=== PATIENT | female | born 1995 | race Caucasian/White ===

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

== ENCOUNTER 2017-01-28 08:19 | Emergency (ER) | payer MEDICAID ==
[~2017-01-28] VITALS: Ht 160 cm; Wt 52.2 kg
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
[2017-01-28] MEDS ORDERED: ONDANSETRON 4 MG (ZOFRAN) ORAL DISSOLVE TAB PO ONE (08:45)
[2017-01-28 08:50] LABS: BILIRUBIN,URINE NEGATIVE (NEGATIVE); KETONES,URINE 4+ (NEGATIVE); LEUKOCYTE ESTERASE ,URINE 2+ (NEGATIVE); NITRITE,URINE POSITIVE (NEGATIVE); PH,URINE 6 (5-9); PROTEIN,URINE 2+ (NEGATIVE); UROBILINOGEN,URINE NORMAL (NORMAL)
[2017-01-28] MEDS ORDERED: IOHEXOL 350 MG/ML 100 ML (OMNIPAQUE 350) VIAL IV ONE (09:00)
[2017-01-28] MEDS ORDERED: NS 100 ML (IVPB) BAG IV ONE (09:00)
[2017-01-28] MEDS ORDERED: LORazepam 0.5 MG (ATIVAN) TABLET PO ONE (09:00)
[2017-01-28 09:19] LABS: BASOPHILS # (AUTO) 0.1 10^3/uL (0.0-0.1); BASOPHILS % (AUTO) 0 % (0-10); EOSINOPHILS # (AUTO) 0.1 10^3/uL (0.0-0.3); EOSINOPHILS % (AUTO) 1 % (0-10); LYMPHOCYTES # (AUTO) 5.2 X 10^3 (1.0-4.0); LYMPHOCYTES % (AUTO) 32 % (12-44); MEAN CORPUSCULAR HEMOGLOBIN 31 PG (25-34); MEAN CORPUSCULAR HGB CONC 35 G/DL (32-36); MEAN CORPUSCULAR VOLUME 88 FL (80-99); MEAN PLATELET VOLUME 10.8 FL (7.4-10.4); MONOCYTES # (AUTO) 2.1 X 10^3 (0.0-1.0); MONOCYTES % (AUTO) 13 % (0-12); NEUTROPHILS # (AUTO) 8.7 X 10^3 (1.8-7.8); NEUTROPHILS % (AUTO) 54 % (42-75); PLATELET COUNT 352 10^3/uL (130-400); RED BLOOD COUNT 4.49 10^6/uL (4.35-5.85); RED CELL DISTRIBUTION WIDTH 14.8 % (10.0-14.5); WHITE BLOOD COUNT 16.2 10^3/uL (4.3-11.0)
[2017-01-28 09:37] LABS: ALANINE AMINOTRANSFERASE 12 U/L (0-55); ANION GAP 10 MMOL/L (5-14); ASPARTATE AMINO TRANSFERASE 19 U/L (5-34); BILIRUBIN,TOTAL 0.9 MG/DL (0.1-1.0); BLOOD UREA NITROGEN 11 MG/DL (7-18); BUN/CREATININE RATIO 21; CALCIUM 9.1 MG/DL (8.5-10.1); CARBON DIOXIDE 23 MMOL/L (21-32); CHLORIDE 105 MMOL/L (98-107); CREATININE SERUM 0.53 MG/DL (0.60-1.30); GFR ESTIMATED > 60; GLUCOSE 86 MG/DL (70-105); POTASSIUM 3.2 MMOL/L (3.6-5.0); SODIUM 138 MMOL/L (135-145); TOTAL PROTEIN 7.4 GM/DL (6.4-8.2); hs C REACTIVE PROTEIN 0.15 MG/DL (0.00-0.50)
--- NOTE | 2017-01-28 09:48 | Diagnostic Imaging Report ---
PROCEDURE: CT abdomen and pelvis with contrast. TECHNIQUE: Multiple contiguous axial images were obtained through the abdomen and pelvis after administration of intravenous contrast. INDICATION: Abdominal pain with nausea for several hours. History of the bowel, spleen and bladder surgery. Patient is quadriplegic. FINDINGS: The lung bases are clear. Liver appears normal. The gallbladder and bile ducts are normal. The pancreas is normal. The spleen is absent. The adrenal glands are normal. Kidneys show symmetrical enhancement and appear normal. The aorta and abdominal vessels show normal enhancement. Small bowel is not dilated. Colon shows normal stool and gas pattern. There is no free air or free fluid. Bladder appears normal. 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 IMPRESSION: 1. No acute intra-abdominal findings are seen to suggest inflammatory bowel changes or bowel obstruction. 2. Previously reported bladder stone on 02/11/2016 is not present on today's exam. Dictated by: Dictated on workstation # [id number]
[2017-01-28 10:11] LABS: LYMPHOCYTES % (MANUAL) 36 %; NEUTROPHILS % (MANUAL) 56 %
[2017-01-28 10:15] LABS: HOWELL-JOLLY BODIES SLIGHT
[2017-01-29] MEDS ORDERED: GABA-488 PO (15:06)
== END 2017-01-28 10:37 | disposition home or self-care (01) ==
LOC: EDUNIT# 08:19 → ER 08:20
DX: R10.32 Left lower quadrant pain (principal); M25.552 Pain in left hip; J45.909 Unspecified asthma, uncomplicated; F41.9 Anxiety disorder, unspecified; E11.40 Type 2 diabetes mellitus with diabetic neuropathy, unspecified; K21.9 Gastro-esophageal reflux disease without esophagitis; F17.210 Nicotine dependence, cigarettes, uncomplicated; Z87.828 Personal history of other (healed) physical injury and trauma; Z87.820 Personal history of traumatic brain injury
CPT/HCPCS: 36415; 74177; 80053; 80306; 81000; 84703; 85007; 85027; 86141; 87088; 87186

== ENCOUNTER 2017-01-28 19:12 | Inpatient (IN) | payer MEDICAID ==
[~2017-01-28] VITALS: Ht 160 cm; Wt 49.9 kg
[2017-01-28] MEDS ORDERED: cefTRIAXone 1 GM (ROCEPHIN) VIAL IV STA (19:18)
[2017-01-28] MEDS ORDERED: NS IV 1000 ML 1,000 ML IV ONE ×2 (19:19→20:46)
[2017-01-28] MEDS ORDERED: LORazepam INJ 2 MG/ML (ATIVAN) VIAL IVP ONE (19:30)
[2017-01-28] MEDS ORDERED: PIPERACILLIN SODIUM/TAZOBACTAM 4.5 GM in NS (IVPB) 100 ML IV ONE (19:30)
[2017-01-28] MEDS ORDERED: WATER (STERILE) FOR INJECTION 20 ML ONE (19:56)
[2017-01-28] MEDS ORDERED: ZIPRASIDONE 20 MG INJ (GEODON) VIAL IM ONE ×2 (19:56→20:15)
[2017-01-28 20:05] LABS: BASOPHILS # (AUTO) 0.1 10^3/uL (0.0-0.1); BASOPHILS % (AUTO) 0 % (0-10); EOSINOPHILS # (AUTO) 0.1 10^3/uL (0.0-0.3); EOSINOPHILS % (AUTO) 0 % (0-10); LYMPHOCYTES # (AUTO) 3.8 X 10^3 (1.0-4.0); LYMPHOCYTES % (AUTO) 13 % (12-44); MEAN CORPUSCULAR HEMOGLOBIN 31 PG (25-34); MEAN CORPUSCULAR HGB CONC 35 G/DL (32-36); MEAN CORPUSCULAR VOLUME 88 FL (80-99); MEAN PLATELET VOLUME 10.9 FL (7.4-10.4); MONOCYTES % (AUTO) 10 % (0-12); NEUTROPHILS # (AUTO) 23.1 X 10^3 (1.8-7.8); NEUTROPHILS % (AUTO) 77 % (42-75); PLATELET COUNT 338 10^3/uL (130-400); RED BLOOD COUNT 4.34 10^6/uL (4.35-5.85); RED CELL DISTRIBUTION WIDTH 14.9 % (10.0-14.5)
[2017-01-28 20:10] LABS: INR 1.2 (0.8-1.4); PROTHROMBIN TIME PATIENT 14.8 SEC (12.2-14.7)
[2017-01-28 20:20] LABS: ALANINE AMINOTRANSFERASE 13 U/L (0-55); ALBUMIN 3.9 GM/DL (3.2-4.5); ANION GAP 14 MMOL/L (5-14); ASPARTATE AMINO TRANSFERASE 18 U/L (5-34); BLOOD UREA NITROGEN 10 MG/DL (7-18); BUN/CREATININE RATIO 16; CALCIUM 9.1 MG/DL (8.5-10.1); CARBON DIOXIDE 18 MMOL/L (21-32); CHLORIDE 106 MMOL/L (98-107); CREATININE SERUM 0.63 MG/DL (0.60-1.30); GFR ESTIMATED > 60; GLUCOSE 86 MG/DL (70-105); POTASSIUM 3.4 MMOL/L (3.6-5.0); SODIUM 138 MMOL/L (135-145); TOTAL PROTEIN 7.1 GM/DL (6.4-8.2)
[2017-01-28 20:26] LABS: BAND NEUTROPHILS 4 %; BASOPHILS % (MANUAL) 1 %; EOSINOPHILS % (MANUAL) 0 %; LYMPHOCYTES % (MANUAL) 22 %; NEUTROPHILS % (MANUAL) 63 %; POIKILOCYTOSIS MODERATE; REACTIVE LYMPHOCYTES 1 %; STOMATOCYTES SLIGHT; TARGET CELLS SLIGHT
[2017-01-28] MEDS ORDERED: NS W/KCL 20 MEQ/L 1,000 ML IV ONE (22:24)
[2017-01-28 22:30] VITALS: BP 85/50
[2017-01-28 22:45] VITALS: BP 85/49
[2017-01-28] MEDS ORDERED: ONDANSETRON 4 MG/2 ML (SDV) Z0FRAN IV PRN (22:45)
[2017-01-28] MEDS ORDERED: PIPERACILLIN/TAZOBACTAM 4.5 GM/NS 100 ML IV ONE ×2 (22:45)
[2017-01-28] MEDS ORDERED: ZIPRASIDONE 20 MG INJ (GEODON) VIAL IM PRN (22:45)
[2017-01-28] MEDS: NS W/KCL 20 MEQ/L 1,000 ML IV SCH (22:54)
[2017-01-28] MEDS ORDERED: CATHETER FLUSH 10 ML SYR IV PRN (23:00)
[2017-01-28 23:04] VITALS: BP 92/59
[2017-01-28] MEDS ORDERED: WATER (STERILE) FOR INJECTION 10 ML ONE (23:51)
[2017-01-29] VITALS (19 sets, daily range): BP systolic 75–104; BP diastolic 39–77
[2017-01-29] MEDS: NS W/KCL 20 MEQ/L 1,000 ML IV SCH ×2 (02:55→10:25)
[2017-01-29] MEDS ORDERED: PIPERACILLIN/TAZOBACTAM 4.5 GM/NS100 ML IVPB IV SCH ×2 (05:00)
[2017-01-29 05:11] LABS: BASOPHILS # (AUTO) 0.1 10^3/uL (0.0-0.1); BASOPHILS % (AUTO) 0 % (0-10); EOSINOPHILS # (AUTO) 0.1 10^3/uL (0.0-0.3); EOSINOPHILS % (AUTO) 0 % (0-10); LYMPHOCYTES # (AUTO) 5.2 X 10^3 (1.0-4.0); LYMPHOCYTES % (AUTO) 22 % (12-44); MEAN CORPUSCULAR HEMOGLOBIN 31 PG (25-34); MEAN CORPUSCULAR HGB CONC 34 G/DL (32-36); MEAN CORPUSCULAR VOLUME 91 FL (80-99); MEAN PLATELET VOLUME 10.9 FL (7.4-10.4); MONOCYTES # (AUTO) 2.1 X 10^3 (0.0-1.0); MONOCYTES % (AUTO) 9 % (0-12); NEUTROPHILS # (AUTO) 16.1 X 10^3 (1.8-7.8); NEUTROPHILS % (AUTO) 68 % (42-75); PLATELET COUNT 307 10^3/uL (130-400); RED BLOOD COUNT 3.88 10^6/uL (4.35-5.85); RED CELL DISTRIBUTION WIDTH 15.6 % (10.0-14.5); WHITE BLOOD COUNT 23.5 10^3/uL (4.3-11.0)
[2017-01-29 05:27] LABS: ALANINE AMINOTRANSFERASE 12 U/L (0-55); ANION GAP 10 MMOL/L (5-14); ASPARTATE AMINO TRANSFERASE 18 U/L (5-34); BILIRUBIN,TOTAL 0.5 MG/DL (0.1-1.0); BLOOD UREA NITROGEN 7 MG/DL (7-18); BUN/CREATININE RATIO 15; CALCIUM 7.8 MG/DL (8.5-10.1); CARBON DIOXIDE 18 MMOL/L (21-32); CHLORIDE 115 MMOL/L (98-107); CREATININE SERUM 0.48 MG/DL (0.60-1.30); GFR ESTIMATED > 60; GLUCOSE 73 MG/DL (70-105); MAGNESIUM 2.1 MG/DL (1.8-2.4); PHOSPHORUS 4.3 MG/DL (2.3-4.7); POTASSIUM 4.4 MMOL/L (3.6-5.0); SODIUM 143 MMOL/L (135-145); TOTAL PROTEIN 5.6 GM/DL (6.4-8.2)
[2017-01-29] MEDS ORDERED: CATHETER FLUSH 10 ML SYR IV SCH (06:00)
[2017-01-29] MEDS ORDERED: KCL 20 MEQ TAB (K-DUR) PO SCH (06:00)
[2017-01-29] MEDS ORDERED: POTASSIUM CL 10MEQ/50ML IVPB 50 ML IV SCH (06:00)
[2017-01-29] MEDS ORDERED: MAGNESIUM 1 GM/100 ML IVPB 100 ML IV SCH (06:00)
[2017-01-29] MEDS ORDERED: INFLUENZA TRIvalent 2017-2018 0.5 ML/45 MCG SYR IM ONE (07:30)
[2017-01-29] MEDS ORDERED: NICOTINE 21 MG (NICODERM) PATCH TD NR (13:00)
[2017-01-29] MEDS ORDERED: GABA-488 PO (15:06)
[2017-01-29] MEDS ORDERED: NON-FORMULARY MEDICATION 1 EA EA (Baclofen 20 MG) PO SCH (17:30)
[2017-01-29] MEDS: GABAPENTIN 600 MG (NEURONTIN) TAB PO SCH ×2 (18:10→23:30)
[2017-01-29] MEDS: GABAPENTIN 300 MG (NEURONTIN) CAP PO SCH ×2 (18:10→23:30)
[2017-01-29] MEDS: BACLOFEN 10 MG (LIORESAL) TAB PO SCH (18:11)
[2017-01-29] MEDS: OXYBUTYNIN (DITROPAN) 5 MG TAB PO SCH ×2 (18:11→23:30)
[2017-01-29] MEDS ORDERED: GABAPENTIN 600 MG (NEURONTIN) TAB PO SCH (21:00)
[2017-01-29] MEDS ORDERED: OXYBUTYNIN (DITROPAN) 5 MG TAB PO SCH (21:00)
[2017-01-29] MEDS ORDERED: GABAPENTIN 300 MG (NEURONTIN) CAP PO SCH (21:00)
[2017-01-30 00:22] VITALS: BP 90/50
[2017-01-30 04:00] VITALS: BP 90/54
[2017-01-30 04:05] VITALS: BP 152/89
[2017-01-30] MEDS: BACLOFEN 10 MG (LIORESAL) TAB PO SCH (05:18)
[2017-01-30 08:00] VITALS: BP 104/61
[2017-01-30] MEDS ORDERED: NICOTINE PATCH REMOVAL TP NR (08:59)
[2017-01-30] MEDS: GABAPENTIN 600 MG (NEURONTIN) TAB PO SCH (09:02)
[2017-01-30] MEDS: OXYBUTYNIN (DITROPAN) 5 MG TAB PO SCH (09:02)
[2017-01-30] MEDS: GABAPENTIN 300 MG (NEURONTIN) CAP PO SCH (09:02)
[2017-01-30 11:30] VITALS: BP 104/61
== END 2017-01-30 11:30 | disposition home or self-care (01) | DRG 897 ==
LOC: EDUNIT# 19:12 → ER 19:13 → ICU 20:49 → 4TH 01-29 15:50
PROVIDERS: ADMIT Internal Medicine; ATTEND Internal Medicine
DX: F15.151 Other stimulant abuse with stimulant-induced psychotic disorder with hallucinations (principal); F11.10 Opioid abuse, uncomplicated; F13.10 Sedative, hypnotic or anxiolytic abuse, uncomplicated; F12.10 Cannabis abuse, uncomplicated; F17.210 Nicotine dependence, cigarettes, uncomplicated; N39.0 Urinary tract infection, site not specified; G82.20 Paraplegia, unspecified; T14.90XS Injury, unspecified, sequela
CPT/HCPCS: 36415; 51702; 71010; 80053; 83605; 83735; 84100; 84703; 85007; 85025; 85027; 85610; 85730; 87040; 96361; 96365; 96372; 96375

== ENCOUNTER 2018-01-08 14:08 | Emergency (ER) | payer MEDICARE, MEDICAID ==
[~2018-01-08] VITALS: Ht 152.4 cm; Wt 42.6 kg
[~2018-01-08 14:08] MED LIST changes: +ACHD5005 PO; +GABA-488 PO; -HYDR-3812 PO
[2018-01-08] MEDS ORDERED: ORPHENADRINE 60 MG/2 ML (NORFLEX) AMP IM ONE (15:00)
[2018-01-08] MEDS ORDERED: KETOROLAC 60 MG/2 ML VIAL IM ONE (15:00)
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
[2018-01-08 15:47] VITALS: BP 92/52
== END 2018-01-08 15:47 | disposition home or self-care (01) ==
LOC: EDUNIT# 14:08 → ER 14:09
DX: M54.5 Low back pain (principal); J44.9 Chronic obstructive pulmonary disease, unspecified; F12.10 Cannabis abuse, uncomplicated; F15.10 Other stimulant abuse, uncomplicated; F41.9 Anxiety disorder, unspecified; K21.9 Gastro-esophageal reflux disease without esophagitis; F17.210 Nicotine dependence, cigarettes, uncomplicated; Z93.0 Tracheostomy status; Z90.81 Acquired absence of spleen; Z87.820 Personal history of traumatic brain injury; Z87.440 Personal history of urinary (tract) infections; Z87.19 Personal history of other diseases of the digestive system
CPT/HCPCS: 96372; 99284

== ENCOUNTER 2018-08-05 14:52 | Emergency (ER) | payer MEDICARE, MEDICAID ==
[~2018-08-05] VITALS: Ht 152.4 cm; Wt 45.4 kg
[~2018-08-05 14:52] MED LIST changes: -GABA600T2 PO; +GBPN600T PO
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
[2018-08-05] MEDS ORDERED: AZIT250T PO (15:33)
[2018-08-05] MEDS ORDERED: IPRA3AMP31 IH (15:33)
[2018-08-05] MEDS ORDERED: PRED10TA22 PO (15:33)
--- NOTE | 2018-08-05 15:39 | Diagnostic Imaging Report ---
INDICATION: Cough, congestion, flu-like symptoms. FINDINGS: The lungs are clear. The heart and vessels are normal. There is no effusion or pneumothorax. IMPRESSION: No acute appearing abnormality. Dictated by: Dictated on workstation # [id number]
[2018-08-05 16:27] VITALS: BP 97/52
== END 2018-08-05 16:27 | disposition home or self-care (01) ==
LOC: EDUNIT# 14:52 → ER 14:53
DX: J44.9 Chronic obstructive pulmonary disease, unspecified (principal); F41.9 Anxiety disorder, unspecified; K21.9 Gastro-esophageal reflux disease without esophagitis; F12.10 Cannabis abuse, uncomplicated; F15.10 Other stimulant abuse, uncomplicated; Z79.52 Long term (current) use of systemic steroids; Z87.820 Personal history of traumatic brain injury; Z87.440 Personal history of urinary (tract) infections; Z77.22 Contact with and (suspected) exposure to environmental tobacco smoke (acute) (chronic); Z93.0 Tracheostomy status; Z90.81 Acquired absence of spleen; Z98.890 Other specified postprocedural states
CPT/HCPCS: 71045; 87804

== ENCOUNTER 2019-07-03 13:51 | Emergency (ER) | payer MEDICARE, MEDICAID ==
[~2019-07-03] VITALS: Ht 152 cm; Wt 45.0 kg
[~2019-07-03 13:51] MED LIST changes: +AZIT250T PO; +IPRA3AMP31 IH; +OXYB5TAB13 PO; -OXYB5TAB9 PO; +PRED10TA22 PO
[2019-07-03 14:01] VITALS: BP 122/98
[2019-07-03] MEDS ORDERED: NS IV 1000 ML 1,000 ML IV SCH (14:13)
--- NOTE | 2019-07-03 14:25 | NUR ---
PATIENT CRYING DOSEN'T WANT TO HAVE IV DR NOTIFIED.
[2019-07-03] MEDS ORDERED: MIRA25TA (14:34)
[2019-07-03] MEDS ORDERED: TRAM50TA3 (14:34)
--- NOTE | 2019-07-03 14:40 | NUR ---
AFTER DR MORALES TALKING WITH PATIENT CON'T TO DECLINE TO HAVE IV WANTS TO SIGN AMA
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
== END 2019-07-03 14:39 | disposition left against medical advice (07) ==
LOC: EDUNIT# 13:51 → ER 13:53
DX: S70.02XA Contusion of left hip, initial encounter (principal); S30.1XXA Contusion of abdominal wall, initial encounter; S20.212A Contusion of left front wall of thorax, initial encounter; F41.9 Anxiety disorder, unspecified; J44.9 Chronic obstructive pulmonary disease, unspecified; R40.2142 Coma scale, eyes open, spontaneous, at arrival to emergency department; R40.2252 Coma scale, best verbal response, oriented, at arrival to emergency department; R40.2362 Coma scale, best motor response, obeys commands, at arrival to emergency department; G62.9 Polyneuropathy, unspecified; F17.210 Nicotine dependence, cigarettes, uncomplicated; Z86.73 Personal history of transient ischemic attack (TIA), and cerebral infarction without residual deficits; Z79.52 Long term (current) use of systemic steroids; W06.XXXA Fall from bed, initial encounter
CPT/HCPCS: 99282

== ENCOUNTER 2019-09-20 20:20 | Inpatient (IN) | payer MEDICARE, MEDICAID ==
[~2019-09-20] VITALS: Ht 152 cm; Wt 50.0 kg
[~2019-09-20 20:20] MED LIST changes: +MIRA25TA; +TRAM50TA3
[2019-09-20] MEDS ORDERED: LACTATED RINGERS 1,000 ML IV ONE ×2 (20:34→21:18)
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
[2019-09-20] MEDS ORDERED: LIDOCAINE 1% INJ 20 ML 20 ML VIAL INJ ONE (20:45)
[2019-09-20] MEDS ORDERED: VANCOMYCIN INJECTION 1,000 MG in NS (IVPB) 250 ML IV ONE (20:45)
[2019-09-20] MEDS ORDERED: HYDROcodone/APAP 5 MG/325 MG (LORTAB) TAB PO ONE (20:45)
[2019-09-20] MEDS ORDERED: PIPERACILLIN SODIUM/TAZOBACTAM 4.5 GM in NS (IVPB) 100 ML IV ONE (20:45)
[2019-09-20 20:49] LABS: BASOPHILS % (AUTO) 0 % (0-10); EOSINOPHILS # (AUTO) 0.3 10^3/uL (0.0-0.3); EOSINOPHILS % (AUTO) 2 % (0-10); HEMATOCRIT 32 % (35-52); HEMOGLOBIN 10.9 G/DL (11.5-16.0); LYMPHOCYTES # (AUTO) 2.8 X 10^3 (1.0-4.0); LYMPHOCYTES % (AUTO) 15 % (12-44); MEAN CORPUSCULAR HEMOGLOBIN 29 PG (25-34); MEAN CORPUSCULAR HGB CONC 34 G/DL (32-36); MEAN CORPUSCULAR VOLUME 86 FL (80-99); MEAN PLATELET VOLUME 10.1 FL (7.4-10.4); MONOCYTES # (AUTO) 2.5 X 10^3 (0.0-1.0); MONOCYTES % (AUTO) 13 % (0-12); NEUTROPHILS # (AUTO) 13.5 X 10^3 (1.8-7.8); NEUTROPHILS % (AUTO) 71 % (42-75); PLATELET COUNT 516 10^3/uL (130-400); RED CELL DISTRIBUTION WIDTH 16.1 % (10.0-14.5); WHITE BLOOD COUNT 19.1 10^3/uL (4.3-11.0)
--- NOTE | 2019-09-20 21:03 | Diagnostic Imaging Report ---
INDICATION: Fever, joint infection. EXAMINATION: Single view of the chest was obtained. FINDINGS: The lungs are clear although hyperexpanded. The heart size and pulmonary vascularity are within normal limits. No effusion or pneumothorax. IMPRESSION: Clear hyperexpanded lungs, otherwise negative. Dictated by: Dictated on workstation # [id number]
--- NOTE | 2019-09-20 21:05 | Diagnostic Imaging Report ---
INDICATION: Fever and infection. EXAMINATION: Three views of the left elbow were obtained. FINDINGS: There is extensive swelling posterior to the intact olecranon. No bony erosion. No pathologically displaced fat pad to suggest a joint effusion. Olecranon bursal collection is likely present. No gas or opaque foreign body. IMPRESSION: Extensive swelling posterior to the olecranon with likely underlying olecranon bursal fluid and cellulitis with skin thickening. Dictated by: Dictated on workstation # [id number]
--- NOTE | 2019-09-20 21:10 | NUR ---
LEFT LEBOW DRAINED, CULTURE SENT BY DR SALGADO.
[2019-09-20 21:13] LABS: ALBUMIN 3.5 GM/DL (3.2-4.5); CHLORIDE 100 MMOL/L (98-107); NEUTROPHILS % (MANUAL) 76 %; SODIUM 134 MMOL/L (135-145)
[2019-09-20 21:14] LABS: CALCIUM 8.5 MG/DL (8.5-10.1); EOSINOPHILS % (MANUAL) 2 %; HYPOCHROMASIA SLIGHT; INR 1.1 (0.8-1.4); LYMPHOCYTES % (MANUAL) 12 %; MONOCYTES % (MANUAL) 10 %; PROTHROMBIN TIME PATIENT 14.5 SEC (12.2-14.7); STOMATOCYTES SLIGHT; TARGET CELLS SLIGHT
--- NOTE | 2019-09-20 21:14 | NUR ---
Donnie guerrero in [facility] - 09/20/19 at 2118 by NERY REPORT GIVEN TO DIDIER ELIZABETH
[2019-09-20 21:15] LABS: GLUCOSE 82 MG/DL (70-105); TOTAL PROTEIN 6.6 GM/DL (6.4-8.2)
[2019-09-20 21:16] LABS: CARBON DIOXIDE 24 MMOL/L (21-32)
[2019-09-20 21:17] LABS: BILIRUBIN,TOTAL 0.4 MG/DL (0.1-1.0)
[2019-09-20 21:19] LABS: ALKALINE PHOSPHATASE 78 U/L (40-136); CREATININE SERUM 0.49 MG/DL (0.60-1.30); GFR ESTIMATED > 60
[2019-09-20 21:20] LABS: BUN/CREATININE RATIO 16
[2019-09-20 21:22] LABS: ALANINE AMINOTRANSFERASE 17 U/L (0-55)
[2019-09-20 22:26] VITALS: BP 70/42
--- NOTE | 2019-09-20 22:30 | NUR ---
2235: PT ADMITTED AT THIS TIME TO ICU-9. PT IMMEDIATELY REPORTING THAT HER NECK ITCHES AND PT IS VIGOROUSLY SCRATCHING HER NECK. PT REPORTS THAT SHE WAS GIVEN HYDROCODONE IN ER AND "THAT SOME PAIN MEDICATIONS MAKE HER ITCH." PT CONNECTED TO MONITOR, URINE INCONTINENCE CLEANED UP, AND 16 F AGEE CATHETER INSERTED. UA SENT DOWN TO LAB. PT REPORTS HIVES TO LEFT SHOULDER. PT'S FACE NOW SWELLING WITH HIVES NOTED TO NECK, SHOULDERS AND FACE. E-ICU AND PLATFORM CONSULTANT NOTIFIED IMMEDIATELY. THIS RN ASKED PT IF SHE HAD ANY ALLERGIES AND SHE FIRST REPORTED THAT SHE HAD NONE, THEN A FEW MINUTES LATER REPORTED THAT SHE HAD A "PENICILLIN ALLERGY A CHILD." THIS RN REPORTED THIS INFORMATION TO E-ICU AND REPORTED ALL MEDS GIVEN IN ER. NEW ORDER RECEIVED FOR 25 MG IV BENADRYL ONCE NOW AND DOCTOR TO SWITCH ANTIBIOTICS FROM ZOSYN TO CLINDAMYCIN. PT REPORTS NO DIFFICULTY SWALLOWING OR SHORTNESS OF AIR. 2320: FACIAL SWELLING IS NOW IMPROVED AND PT REPORTS NOT FEELING ITCHY. SEE INTERVENTIONS FOR ASSESSMENTS AND VITAL SIGNS. PENICILLIN AND ZOSYN ADDED TO PT'S ALLERGY LIST. WILL CONTINUE TO MONITOR.
[2019-09-20] MEDS ORDERED: diphenhydrAMINE 50 MG/ML INJ (BENADRYL) ONE (22:38)
[2019-09-20 22:45] VITALS: BP 76/32
[2019-09-20] MEDS ORDERED: ACETAMINOPHEN 325 MG TABLET PO PRN (22:45)
[2019-09-20] MEDS ORDERED: diphenhydrAMINE 50 MG/ML INJ (BENADRYL) IVP ONE (22:45)
[2019-09-20] MEDS ORDERED: ONDANSETRON 4 MG/2 ML (SDV) Z0FRAN IV PRN (22:45)
[2019-09-20 22:47] LABS: BILIRUBIN,URINE NEGATIVE (NEGATIVE); CLARITY,URINE CLEAR; COLOR,URINE YELLOW; GLUCOSE, URINE (UA) NEGATIVE (NEGATIVE); KETONES,URINE NEGATIVE (NEGATIVE); LEUKOCYTE ESTERASE ,URINE TRACE (NEGATIVE); NITRITE,URINE NEGATIVE (NEGATIVE); PH,URINE 7.5 (5-9); PROTEIN,URINE NEGATIVE (NEGATIVE)
[2019-09-20] MEDS: LACTATED RINGERS 1,000 ML IV SCH (22:52)
[2019-09-20 23:00] VITALS: BP 85/43
[2019-09-20 23:03] LABS: RBC,URINE RARE /HPF; WBC,URINE 0-2 /HPF
[2019-09-20 23:04] LABS: BACTERIA,URINE TRACE /HPF; URIC ACID CRYSTALS,URINE RARE /LPF; YEAST,URINE FEW /HPF
[2019-09-20 23:06] LABS: AMPHETAMINE SCREEN, URINE NEGATIVE (NEGATIVE); BARBITURATE SCREEN URINE NEGATIVE (NEGATIVE); BENZODIAZEPINES SCREEN URINE NEGATIVE (NEGATIVE); CANNABINOID SCREEN, URINE POSITIVE (NEGATIVE); COCAINE SCREEN URINE NEGATIVE (NEGATIVE); METHADONE STAT NEGATIVE (NEGATIVE); METHAMPHETAMINE SCREEN URINE S NEGATIVE (NEGATIVE); OPIATE SCREEN URINE POSITIVE (NEGATIVE); OXYCODONE STAT NEGATIVE (NEGATIVE); PROPOXYPHENE STAT NEGATIVE (NEGATIVE); TRICYCLIC ANTIDEPRESSANTS SCRE NEGATIVE (NEGATIVE)
[2019-09-20 23:30] VITALS: BP 68/40
--- NOTE | 2019-09-20 23:45 | NUR ---
PT'S SBP IN THE 70'S. E-ICU NOTIFIED OF BLOOD PRESSURE. PT REPORTS THAT HER "BLOOD PRESSURE USUALLY RUNS IN THE 80'S." NO NEW ORDERS RECEIVED.
[2019-09-21] VITALS (26 sets, daily range): BP systolic 66–112; BP diastolic 34–72
[2019-09-21] MEDS ORDERED: GABAPENTIN 300 MG (NEURONTIN) CAP ONE (00:32)
[2019-09-21] MEDS ORDERED: BACLOFEN 10 MG (LIORESAL) TAB ONE (00:32)
[2019-09-21] MEDS: BACLOFEN 10 MG (LIORESAL) TAB PO SCH ×4 (00:41→20:17)
[2019-09-21] MEDS: GABAPENTIN 300 MG (NEURONTIN) CAP PO SCH ×4 (00:41→20:16)
[2019-09-21] MEDS ORDERED: PIPERACILLIN/TAZO 4.5 GM/NS 100 ML IV SCH ×2 (02:00)
[2019-09-21 03:40] LABS: BASOPHILS % (AUTO) 0 % (0-10); EOSINOPHILS # (AUTO) 0.2 10^3/uL (0.0-0.3); EOSINOPHILS % (AUTO) 2 % (0-10); HEMATOCRIT 31 % (35-52); HEMOGLOBIN 10.3 G/DL (11.5-16.0); LYMPHOCYTES # (AUTO) 3.2 X 10^3 (1.0-4.0); LYMPHOCYTES % (AUTO) 23 % (12-44); MEAN CORPUSCULAR HEMOGLOBIN 29 PG (25-34); MEAN CORPUSCULAR HGB CONC 33 G/DL (32-36); MEAN CORPUSCULAR VOLUME 88 FL (80-99); MEAN PLATELET VOLUME 11.5 FL (7.4-10.4); MONOCYTES # (AUTO) 1.6 X 10^3 (0.0-1.0); MONOCYTES % (AUTO) 11 % (0-12); NEUTROPHILS % (AUTO) 64 % (42-75); PLATELET COUNT 465 10^3/uL (130-400)
[2019-09-21 03:56] LABS: CHLORIDE 106 MMOL/L (98-107); POTASSIUM 3.9 MMOL/L (3.6-5.0); SODIUM 139 MMOL/L (135-145)
[2019-09-21 03:57] LABS: CALCIUM 8.3 MG/DL (8.5-10.1)
[2019-09-21 03:58] LABS: GLUCOSE 93 MG/DL (70-105)
[2019-09-21 03:59] LABS: CARBON DIOXIDE 25 MMOL/L (21-32)
[2019-09-21 04:01] LABS: PHOSPHORUS 3.8 MG/DL (2.3-4.7)
[2019-09-21 04:02] LABS: CREATININE SERUM 0.52 MG/DL (0.60-1.30); GFR ESTIMATED > 60
[2019-09-21 04:03] LABS: BUN/CREATININE RATIO 13
[2019-09-21 04:04] LABS: MAGNESIUM 1.9 MG/DL (1.6-2.4)
[2019-09-21] MEDS: HYDROcodone/APAP 5 MG/325 MG (LORTAB) TAB PO PRN ×3 (04:10→20:16)
[2019-09-21] MEDS: LACTATED RINGERS 1,000 ML IV SCH ×3 (05:43→19:37)
[2019-09-21] MEDS: CLINDAMYCIN 600 MG/50 ML IVPB 50 ML IV SCH ×3 (07:22→23:10)
[2019-09-21] MEDS ORDERED: NS IV 1000 ML 1,000 ML IV SCH (08:15)
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
[2019-09-21] MEDS: IBUPROFEN TABLET 200 MG TAB PO PRN (17:25)
[2019-09-22] VITALS (9 sets, daily range): BP systolic 81–117; BP diastolic 52–84
[2019-09-22] MEDS: LACTATED RINGERS 1,000 ML IV SCH (02:32)
[2019-09-22] MEDS: HYDROcodone/APAP 5 MG/325 MG (LORTAB) TAB PO PRN (02:33)
[2019-09-22 03:45] LABS: BASOPHILS # (AUTO) 0.1 10^3/uL (0.0-0.1); BASOPHILS % (AUTO) 0 % (0-10); EOSINOPHILS # (AUTO) 0.4 10^3/uL (0.0-0.3); EOSINOPHILS % (AUTO) 3 % (0-10); HEMATOCRIT 29 % (35-52); HEMOGLOBIN 9.6 G/DL (11.5-16.0); LYMPHOCYTES # (AUTO) 7.1 X 10^3 (1.0-4.0); LYMPHOCYTES % (AUTO) 47 % (12-44); MEAN CORPUSCULAR HEMOGLOBIN 29 PG (25-34); MEAN CORPUSCULAR HGB CONC 34 G/DL (32-36); MEAN CORPUSCULAR VOLUME 85 FL (80-99); MEAN PLATELET VOLUME 11.3 FL (7.4-10.4); MONOCYTES # (AUTO) 2.4 X 10^3 (0.0-1.0); MONOCYTES % (AUTO) 16 % (0-12); NEUTROPHILS # (AUTO) 5.1 X 10^3 (1.8-7.8); NEUTROPHILS % (AUTO) 34 % (42-75); PLATELET COUNT 437 10^3/uL (130-400); RED CELL DISTRIBUTION WIDTH 16.2 % (10.0-14.5)
[2019-09-22 04:13] LABS: CHLORIDE 107 MMOL/L (98-107); POTASSIUM 3.9 MMOL/L (3.6-5.0); SODIUM 141 MMOL/L (135-145)
[2019-09-22 04:14] LABS: CALCIUM 8.3 MG/DL (8.5-10.1)
[2019-09-22 04:15] LABS: GLUCOSE 80 MG/DL (70-105)
[2019-09-22 04:16] LABS: CARBON DIOXIDE 24 MMOL/L (21-32)
[2019-09-22 04:18] LABS: CREATININE SERUM 0.46 MG/DL (0.60-1.30); GFR ESTIMATED > 60; PHOSPHORUS 3.4 MG/DL (2.3-4.7)
[2019-09-22 04:19] LABS: BUN/CREATININE RATIO 9
[2019-09-22 04:21] LABS: MAGNESIUM 1.7 MG/DL (1.6-2.4)
[2019-09-22] MEDS: MAGNESIUM 1 GM/100 ML IVPB 100 ML IV SCH ×2 (05:59→06:56)
[2019-09-22] MEDS: IBUPROFEN TABLET 200 MG TAB PO PRN (06:11)
[2019-09-22] MEDS: CLINDAMYCIN 600 MG/50 ML IVPB 50 ML IV SCH (06:13)
--- NOTE | 2019-09-22 09:00 | NUR ---
Upon entering patient room, there was an immediate request to leave AMA. This RN educated patient on need to stay in hospital for continued treatment and possible worsening of condition if she leaves. Patient also informed that by leaving AMA she would not be given scripts for continued antibiotics. After conversation patients still would like to leave. Dr Euceda notified. Paperwork signed. IV and ornelas catheter removed. Patient wheeled out to boyfriend's car by this RN.
--- NOTE | 2019-09-22 16:06 | Discharge Summary ---
Discharge Summary Hospital Course Hospital Course Date of Admission: September 20, 2019 at 20:45 Admission Diagnosis : Family Physician/Provider: [facility] Date of Discharge: 09/22/19 Discharge Diagnosis: Left against medical advice Sepsis secondary to cellulitis Hospital Course: Pt admitted with sepsis secondary to cellulitis of elbow, left AMA before I saw her on 09/21. Labs and Pending Lab Test: Laboratory Tests 09/22/19 03:03: White Blood Count 15.0H, Red Blood Count 3.34L, Hemoglobin 9.6L, Hematocrit 29L, Mean Corpuscular Volume 85, Mean Corpuscular Hemoglobin 29, Mean Corpuscular Hemoglobin Concent 34, Red Cell Distribution Width 16.2H, Platelet Count 437H, Mean Platelet Volume 11.3H, Neutrophils (%) (Auto) 34L, Lymphocytes (%) (Auto) 47H, Monocytes (%) (Auto) 16H, Eosinophils (%) (Auto) 3, Basophils (%) (Auto) 0, Neutrophils # (Auto) 5.1, Lymphocytes # (Auto) 7.1H, Monocytes # (Auto) 2.4H, Eosinophils # (Auto) 0.4H, Basophils # (Auto) 0.1, Sodium Level 141, Potassium Level 3.9, Chloride Level 107, Carbon Dioxide Level 24, Anion Gap 10, Blood Urea Nitrogen 4L, Creatinine 0.46L, Estimat Glomerular Filtration Rate > 60, BUN/Creatinine Ratio 9, Glucose Level 80, Calcium Level 8.3L, Phosphorus Level 3.4, Magnesium Level 1.7 Microbiology 09/20/19 Urine Culture - Final, Complete Escherichia coli Group B Streptococci 09/20/19 Gram Stain - Final, Resulted 09/20/19 Wound Culture - Preliminary, Resulted Gram Pos Mixed Bacterial Oriana Strep agalactiae Group B 09/20/19 Blood Culture - Preliminary, Resulted No growth Home Meds Active Iprat-Albut 0.5-3(2.5) mg/3 ml (Ipratropium/Albuterol Sulfate) 3 Ml Ampul.neb 3 Ml IH Q4H PRN Zithromax (Azithromycin) 250 Mg Tablet 250 Mg PO UD TAKE 2 TABLETS TODAY, THEN TAKE 1 TABLET DAILY FOR 4 MORE DAYS Prednisone 10 Mg Tab.ds.pk 10 Mg PO UD Reported Tramadol HCl 50 Mg Tablet Myrbetriq (Mirabegron) 25 Mg Tab.er.24h Gabapentin 300 Mg Capsule 300 Mg PO TID TAKES IN CONJUNCTION WITH GABAPENTIN 600MG Oxybutynin Chloride 5 Mg Tablet 10 Mg PO TID TAKES 2 (5MG) TABLETS Baclofen 20 Mg Tablet 20 Mg PO Q8H Gabapentin 600 Mg Tablet 600 Mg PO TID TAKES IN CONJUNCTION WITH GABAPENTIN 300MG Assessment/Pt DC Instructions Pt left AMA Discharge Physical Examination Allergies: Coded Allergies: piperacillin (Verified Allergy, Severe, Hives, 09/20/19) ITCHING, FACIAL SWELLING AND HIVES tazobactam (Verified Allergy, Severe, Hives, 09/20/19) ITCHING, FACIAL SWELLING AND HIVES Penicillins (Verified Allergy, Unknown, 09/20/19) Skin: Tattoos/Piercings Copy Copies To 1: MELI WALLACE MD Clinical Quality Measures DVT/VTE Risk/Contraindication: Risk Factor Score Per Nursin RFS Level Per Nursing on Admit: 4+=Very High REKHA BLANTON MD September 22, 2019 16:06
[2019-09-23] MEDS ORDERED: MAGNESIUM 1 GM/100 ML IVPB 100 ML IV SCH (06:00)
[2019-09-23] MEDS ORDERED: KCL 20 MEQ TAB (K-DUR) PO SCH (06:00)
[2019-09-23] MEDS ORDERED: POTASSIUM CL 10MEQ/50ML IVPB 50 ML IV SCH (06:00)
== END 2019-09-22 09:00 | disposition left against medical advice (07) | DRG 872 ==
LOC: EDUNIT# 20:20 → ER 20:22 → ICU 20:45
PROVIDERS: ADMIT Internal Medicine; ATTEND Family Medicine
PROC: 0J9F0ZX Drainage of Left Upper Arm Subcutaneous Tissue and Fascia, Open Approach, Diagnostic (ICD-10-PCS; principal; 2019-09-20)
DX: A41.9 Sepsis, unspecified organism (principal); L03.114 Cellulitis of left upper limb; L89.020 Pressure ulcer of left elbow, unstageable; L50.0 Allergic urticaria; T36.0X5A Adverse effect of penicillins, initial encounter; S14.106S Unspecified injury at C6 level of cervical spinal cord, sequela; G81.90 Hemiplegia, unspecified affecting unspecified side; Z90.81 Acquired absence of spleen; J44.9 Chronic obstructive pulmonary disease, unspecified; G62.9 Polyneuropathy, unspecified; Z87.820 Personal history of traumatic brain injury; K21.9 Gastro-esophageal reflux disease without esophagitis; M21.379 Foot drop, unspecified foot; F41.9 Anxiety disorder, unspecified
CPT/HCPCS: 36415; 71045; 73080; 80048; 80053; 80306; 81000; 83605; 83735; 84100; 85007; 85025; 85027; 85610; 85730; 87040; 87070; 87077; 87088; 87186; 87205; 96361; 96365; 96367

== ENCOUNTER → 2019-09-30 | Outpatient (CLI) | payer MEDICARE, MEDICAID | LOC: WOUNDCARE 13:06 | PROVIDERS: ATTEND Surgery | DX: I96 Gangrene, not elsewhere classified (principal); L89.023 Pressure ulcer of left elbow, stage 3; G82.54 Quadriplegia, C5-C7 incomplete; E44.1 Mild protein-calorie malnutrition | CPT/HCPCS: 11042 ==

== ENCOUNTER → 2019-10-13 | Outpatient (CLI) | payer MEDICARE, MEDICAID | LOC: WOUNDCARE 14:30 | PROVIDERS: ATTEND Surgery | DX: L89.023 Pressure ulcer of left elbow, stage 3 (principal); G82.50 Quadriplegia, unspecified; E44.1 Mild protein-calorie malnutrition; I96 Gangrene, not elsewhere classified | CPT/HCPCS: 11042 ==

== ENCOUNTER 2019-10-26 06:47 | Emergency (ER) | payer MEDICARE, MEDICAID ==
[~2019-10-26] VITALS: Ht 152 cm; Wt 45.5 kg
[2019-10-26 07:04] LABS: BASOPHILS # (AUTO) 0.1 10^3/uL (0.0-0.1); BASOPHILS % (AUTO) 0 % (0-10); EOSINOPHILS # (AUTO) 0.3 10^3/uL (0.0-0.3); EOSINOPHILS % (AUTO) 1 % (0-10); HEMATOCRIT 31 % (35-52); HEMOGLOBIN 10.7 G/DL (11.5-16.0); LYMPHOCYTES # (AUTO) 5.5 X 10^3 (1.0-4.0); LYMPHOCYTES % (AUTO) 29 % (12-44); MEAN CORPUSCULAR HEMOGLOBIN 30 PG (25-34); MEAN CORPUSCULAR HGB CONC 35 G/DL (32-36); MEAN CORPUSCULAR VOLUME 85 FL (80-99); MEAN PLATELET VOLUME 10.6 FL (7.4-10.4); MONOCYTES # (AUTO) 2.5 X 10^3 (0.0-1.0); MONOCYTES % (AUTO) 13 % (0-12); NEUTROPHILS # (AUTO) 10.8 X 10^3 (1.8-7.8); NEUTROPHILS % (AUTO) 56 % (42-75); PLATELET COUNT 413 10^3/uL (130-400); RED CELL DISTRIBUTION WIDTH 18.6 % (10.0-14.5); WHITE BLOOD COUNT 19.1 10^3/uL (4.3-11.0)
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
--- NOTE | 2019-10-26 07:48 | NUR ---
Pt's L elbow wound irrigated at this time.
[2019-10-26] MEDS ORDERED: NS IV 1000 ML 1,000 ML IV SCH (08:00)
[2019-10-26 08:11] LABS: EOSINOPHILS % (MANUAL) 1 %; HYPOCHROMASIA MODERATE; LYMPHOCYTES % (MANUAL) 29 %; MONOCYTES % (MANUAL) 6 %; NEUTROPHILS % (MANUAL) 64 %; TARGET CELLS MARKED
[2019-10-26 08:12] LABS: ELLIPT/OVALOCYTES SLIGHT; HOWELL-JOLLY BODIES SLIGHT; STOMATOCYTES MODERATE
[2019-10-26] MEDS ORDERED: CEFEPIME INJECTION 2,000 MG in WATER (STERILE) FOR INJECTION 20 ML IV ONE (08:15)
--- NOTE | 2019-10-26 08:25 | Diagnostic Imaging Report ---
INDICATION: Left elbow pain. COMPARISON: None available. TECHNIQUE: 2 views of the left elbow were obtained. FINDINGS: There is focal bulbous soft tissue swelling along the olecranon region of the elbow which may represent olecranon bursitis. No associated soft tissue mineralizations or gas. No fracture or osseous erosions. Joint spaces are well-preserved. No features of elbow joint effusion. IMPRESSION: 1. Soft tissue swelling in the posterior aspect that probably represents olecranon bursitis. No soft tissue gas. 2. No radiographic features of osteomyelitis in the olecranon. Dictated by: Dictated on workstation # [id number]
--- NOTE | 2019-10-26 08:48 | NUR ---
Patient care report from Sandip Henriquez RN.
[2019-10-26] MEDS ORDERED: CLIN300C11 PO (08:56)
[2019-10-26] MEDS ORDERED: SULF1TAB35 PO (08:56)
--- NOTE | 2019-10-26 09:00 | NUR ---
Patients wound cleaned and dressed
[2019-10-26 09:18] VITALS: BP 131/80
[2019-10-26 09:19] VITALS: BP 131/80
== END 2019-10-26 10:05 | disposition home or self-care (01) ==
LOC: EDUNIT# 06:47 → ER 06:48
DX: L89.023 Pressure ulcer of left elbow, stage 3 (principal); J44.9 Chronic obstructive pulmonary disease, unspecified; G62.9 Polyneuropathy, unspecified; G83.9 Paralytic syndrome, unspecified; N39.0 Urinary tract infection, site not specified; F17.210 Nicotine dependence, cigarettes, uncomplicated; Z88.1 Allergy status to other antibiotic agents; Z88.0 Allergy status to penicillin; Z88.8 Allergy status to other drugs, medicaments and biological substances; Z79.52 Long term (current) use of systemic steroids; Z87.820 Personal history of traumatic brain injury
CPT/HCPCS: 36415; 73080; 83605; 84703; 85007; 85027; 86141; 87040; 87070; 87077; 87186; 87205

== ENCOUNTER → 2019-10-27 | Outpatient (CLI) | payer MEDICARE, MEDICAID ==
[~2019-10-27] MED LIST changes: +CLIN300C11 PO; +SULF1TAB35 PO
== END ==
LOC: WOUNDCARE 14:47
PROVIDERS: ATTEND Surgery
DX: I96 Gangrene, not elsewhere classified (principal); L89.023 Pressure ulcer of left elbow, stage 3; G82.54 Quadriplegia, C5-C7 incomplete; E44.1 Mild protein-calorie malnutrition
CPT/HCPCS: 11042

== ENCOUNTER → 2019-11-03 | Outpatient (CLI) | payer MEDICARE, MEDICAID | LOC: WOUNDCARE 14:43 | PROVIDERS: ATTEND Surgery | DX: I96 Gangrene, not elsewhere classified (principal); L89.023 Pressure ulcer of left elbow, stage 3; G82.54 Quadriplegia, C5-C7 incomplete; E44.1 Mild protein-calorie malnutrition | CPT/HCPCS: 11042 ==

== ENCOUNTER → 2019-11-10 | Outpatient (CLI) | payer MEDICARE, MEDICAID | LOC: WOUNDCARE 14:48 | PROVIDERS: ATTEND Surgery | DX: I96 Gangrene, not elsewhere classified (principal); G82.54 Quadriplegia, C5-C7 incomplete; E44.1 Mild protein-calorie malnutrition; L89.023 Pressure ulcer of left elbow, stage 3 | CPT/HCPCS: 11042 ==

== ENCOUNTER → 2019-11-17 | Outpatient (CLI) | payer MEDICARE, MEDICAID | LOC: WOUNDCARE 14:58 | PROVIDERS: ATTEND Surgery | DX: I96 Gangrene, not elsewhere classified (principal); L89.023 Pressure ulcer of left elbow, stage 3; G82.54 Quadriplegia, C5-C7 incomplete; E44.1 Mild protein-calorie malnutrition | CPT/HCPCS: 11042 ==

== ENCOUNTER → 2019-11-25 | Outpatient (CLI) | payer MEDICARE, MEDICAID | LOC: WOUNDCARE 09:34 | PROVIDERS: ATTEND Surgery | DX: L89.023 Pressure ulcer of left elbow, stage 3 (principal); G82.54 Quadriplegia, C5-C7 incomplete; E44.1 Mild protein-calorie malnutrition; I96 Gangrene, not elsewhere classified | CPT/HCPCS: 11042 ==

== ENCOUNTER → 2019-12-01 | Outpatient (CLI) | payer MEDICARE, MEDICAID | LOC: WOUNDCARE 11:03 | PROVIDERS: ATTEND Surgery | DX: L89.023 Pressure ulcer of left elbow, stage 3 (principal); G82.54 Quadriplegia, C5-C7 incomplete; E44.1 Mild protein-calorie malnutrition; J44.9 Chronic obstructive pulmonary disease, unspecified; F17.210 Nicotine dependence, cigarettes, uncomplicated; G82.20 Paraplegia, unspecified; Z87.820 Personal history of traumatic brain injury; F41.9 Anxiety disorder, unspecified | CPT/HCPCS: 99213 ==

== ENCOUNTER 2019-12-10 20:00 | Emergency (ER) | payer MEDICARE, MEDICAID ==
[~2019-12-10] VITALS: Ht 162 cm; Wt 38.5 kg
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
[2019-12-10 20:33] LABS: AMPHETAMINE SCREEN, URINE POSITIVE (NEGATIVE); BARBITURATE SCREEN URINE NEGATIVE (NEGATIVE); BENZODIAZEPINES SCREEN URINE NEGATIVE (NEGATIVE); CANNABINOID SCREEN, URINE POSITIVE (NEGATIVE); COCAINE SCREEN URINE NEGATIVE (NEGATIVE); METHADONE STAT NEGATIVE (NEGATIVE); METHAMPHETAMINE SCREEN URINE S POSITIVE (NEGATIVE); OPIATE SCREEN URINE NEGATIVE (NEGATIVE); OXYCODONE STAT NEGATIVE (NEGATIVE); PROPOXYPHENE STAT NEGATIVE (NEGATIVE); TRICYCLIC ANTIDEPRESSANTS SCRE NEGATIVE (NEGATIVE)
[2019-12-10 20:33] LABS: BASOPHILS # (AUTO) 0.1 10^3/uL (0.0-0.1); BASOPHILS % (AUTO) 0 % (0-10); EOSINOPHILS # (AUTO) 0.1 10^3/uL (0.0-0.3); EOSINOPHILS % (AUTO) 1 % (0-10); HEMATOCRIT 41 % (35-52); HEMOGLOBIN 14.1 G/DL (11.5-16.0); LYMPHOCYTES # (AUTO) 3.9 X 10^3 (1.0-4.0); LYMPHOCYTES % (AUTO) 30 % (12-44); MEAN CORPUSCULAR HEMOGLOBIN 29 PG (25-34); MEAN CORPUSCULAR HGB CONC 35 G/DL (32-36); MEAN CORPUSCULAR VOLUME 83 FL (80-99); MEAN PLATELET VOLUME 10.4 FL (7.4-10.4); MONOCYTES # (AUTO) 1.6 X 10^3 (0.0-1.0); MONOCYTES % (AUTO) 12 % (0-12); NEUTROPHILS # (AUTO) 7.4 X 10^3 (1.8-7.8); NEUTROPHILS % (AUTO) 57 % (42-75); PLATELET COUNT 460 10^3/uL (130-400); RED CELL DISTRIBUTION WIDTH 18.7 % (10.0-14.5); WHITE BLOOD COUNT 13.1 10^3/uL (4.3-11.0)
[2019-12-10 20:57] LABS: BILIRUBIN,URINE NEGATIVE (NEGATIVE); CLARITY,URINE CLEAR; COLOR,URINE YELLOW; GLUCOSE, URINE (UA) NEGATIVE (NEGATIVE); KETONES,URINE NEGATIVE (NEGATIVE); LEUKOCYTE ESTERASE ,URINE TRACE (NEGATIVE); NITRITE,URINE NEGATIVE (NEGATIVE); PROTEIN,URINE NEGATIVE (NEGATIVE)
[2019-12-10 21:00] VITALS: BP 145/96
[2019-12-10 21:03] LABS: BACTERIA,URINE TRACE /HPF; RBC,URINE 0-2 /HPF; SQUAMOUS EPITHELIAL CELL,UR 0-2 /HPF; WBC,URINE RARE /HPF
[2019-12-10 21:18] LABS: BUN/CREATININE RATIO 21; CARBON DIOXIDE 16 MMOL/L (21-32); CREATININE SERUM 0.62 MG/DL (0.60-1.30); GFR ESTIMATED > 60; POTASSIUM 3.7 MMOL/L (3.6-5.0); SODIUM 139 MMOL/L (135-145)
[2019-12-10 21:19] LABS: ALANINE AMINOTRANSFERASE 10 U/L (0-55); ALBUMIN 4.4 GM/DL (3.2-4.5); ALKALINE PHOSPHATASE 66 U/L (40-136); BILIRUBIN,TOTAL 0.7 MG/DL (0.1-1.0); CALCIUM 9.5 MG/DL (8.5-10.1); GLUCOSE 86 MG/DL (70-105); TOTAL PROTEIN 8.3 GM/DL (6.4-8.2)
[2019-12-10 22:18] LABS: CHLORIDE 107 MMOL/L (98-107)
== END 2019-12-10 21:00 | disposition home or self-care (01) ==
LOC: EDUNIT# 20:00 → ER 20:02
DX: R10.2 Pelvic and perineal pain (principal); J44.9 Chronic obstructive pulmonary disease, unspecified; N39.0 Urinary tract infection, site not specified; Z88.0 Allergy status to penicillin; Z88.1 Allergy status to other antibiotic agents; Z87.820 Personal history of traumatic brain injury; Z77.22 Contact with and (suspected) exposure to environmental tobacco smoke (acute) (chronic); Z79.52 Long term (current) use of systemic steroids
CPT/HCPCS: 36415; 80053; 80306; 81000; 84703; 85025

== ENCOUNTER 2019-12-21 10:21 | Emergency (ER) | payer MEDICARE, MEDICAID ==
[~2019-12-21] VITALS: Ht 152 cm; Wt 40.8 kg
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
[2019-12-21] MEDS ORDERED: CEPH500T PO (11:02)
[2019-12-21] MEDS ORDERED: viscous lidocaine TOP (11:04)
[2019-12-21 11:16] VITALS: BP 86/45
== END 2019-12-21 11:16 | disposition home or self-care (01) ==
LOC: EDUNIT# 10:21 → ER 10:22
DX: S31.41XA Laceration without foreign body of vagina and vulva, initial encounter (principal); J44.9 Chronic obstructive pulmonary disease, unspecified; G82.20 Paraplegia, unspecified; F41.9 Anxiety disorder, unspecified; N39.0 Urinary tract infection, site not specified; F17.210 Nicotine dependence, cigarettes, uncomplicated; Z87.820 Personal history of traumatic brain injury; Z88.0 Allergy status to penicillin; Z88.1 Allergy status to other antibiotic agents; Z79.52 Long term (current) use of systemic steroids; X58.XXXA Exposure to other specified factors, initial encounter
CPT/HCPCS: 99282

== ENCOUNTER → 2020-02-07 | Emergency (ER) | payer MEDICARE, MEDICAID ==
[~2020-02-07] MED LIST changes: +CEPH500T PO; +viscous lidocaine TOP
--- NOTE | 2020-02-07 21:28 | NUR ---
Pt wasn't seen by provider nor triaged; pt refused to come to exam room and became upset when her SO couldn't accompany her to exam room. Explained to patient and SO that it was for their safety and attempted to reassure them that we would take care of her but they became upset and left the premises.
== END ==
LOC: EDUNIT# 20:59 → ER 21:00
DX: N94.89 Other specified conditions associated with female genital organs and menstrual cycle (principal)

== ENCOUNTER → 2020-04-02 | Outpatient (CLI) | payer MEDICARE, MEDICAID ==
[~2020-04-02] MED LIST changes: -CLIN300C11 PO; +CLIN300C12 PO
--- NOTE | 2020-04-02 15:29 | Diagnostic Imaging Report ---
PROCEDURE: US Non-ob pelvis comp/trans. INDICATION: Abnormal uterine bleeding. Quadriplegia TECHNIQUE: Multiple real time emery scale sonographic images were obtained of the pelvis transabdominally. CORRELATION STUDY: None FINDINGS: UTERUS: 5.9 x 2.2 x 3.9 cm. The uterus appears unremarkable. ENDOMETRIUM: 3 mm. The endometrium appearing unremarkable. RIGHT OVARY: 3.3 x 2.4 x 2.3 cm The right ovary has an unremarkable appearance. No concerning mass. Blood flow is present. LEFT OVARY: 2.2 x 1.4 x 1.9 cm The left ovary has an unremarkable appearance. No concerning mass. Blood flow is present. No significant free pelvic fluid. IMPRESSION: 1. Unremarkable appearing transabdominal pelvic ultrasound examination. Dictated by: Dictated on workstation # [id number]
== END ==
LOC: RAD 14:37
PROVIDERS: ATTEND Obstetrics & Gynecology
DX: N93.9 Abnormal uterine and vaginal bleeding, unspecified (principal); G82.50 Quadriplegia, unspecified
CPT/HCPCS: 76830; 76856

== ENCOUNTER 2020-06-14 11:10 | Observation (INO) | payer MEDICARE, MEDICAID ==
[~2020-06-14] VITALS: Ht 147 cm; Wt 31.7 kg
[2020-06-14] MEDS ORDERED: LACTATED RINGERS 1,000 ML IV ONE (11:30)
[2020-06-14] MEDS ORDERED: LORazepam INJ 2 MG/ML (ATIVAN) VIAL ONE (11:31)
[2020-06-14 11:39] LABS: CLARITY,URINE CLOUDY; COLOR,URINE YELLOW; GLUCOSE, URINE (UA) NEGATIVE (NEGATIVE); KETONES,URINE 1+ (NEGATIVE); LEUKOCYTE ESTERASE ,URINE NEGATIVE (NEGATIVE); NITRITE,URINE POSITIVE (NEGATIVE); PH,URINE 5.5 (5-9); PROTEIN,URINE 1+ (NEGATIVE)
[2020-06-14] MEDS ORDERED: LORazepam INJ 2 MG/ML (ATIVAN) VIAL IVP ONE (11:45)
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
[2020-06-14 11:53] LABS: BACTERIA,URINE LARGE /HPF; BILIRUBIN,URINE NEGATIVE (NEGATIVE); SQUAMOUS EPITHELIAL CELL,UR 25-50 /HPF
[2020-06-14 11:55] LABS: AMPHETAMINE SCREEN, URINE POSITIVE (NEGATIVE); BARBITURATE SCREEN URINE NEGATIVE (NEGATIVE); BENZODIAZEPINES SCREEN URINE NEGATIVE (NEGATIVE); CANNABINOID SCREEN, URINE POSITIVE (NEGATIVE); COCAINE SCREEN URINE NEGATIVE (NEGATIVE); METHADONE STAT NEGATIVE (NEGATIVE); METHAMPHETAMINE SCREEN URINE S POSITIVE (NEGATIVE); OPIATE SCREEN URINE NEGATIVE (NEGATIVE); OXYCODONE STAT NEGATIVE (NEGATIVE); PROPOXYPHENE STAT NEGATIVE (NEGATIVE); TRICYCLIC ANTIDEPRESSANTS SCRE NEGATIVE (NEGATIVE)
[2020-06-14] MEDS ORDERED: cefTRIAXone FOR IV USE 1,000 MG in WATER (STERILE) FOR INJECTION 10 ML IV ONE (12:15)
[2020-06-14 12:16] LABS: ALBUMIN 3.9 GM/DL (3.2-4.5); CHLORIDE 104 MMOL/L (98-107); POTASSIUM 4.3 MMOL/L (3.6-5.0); SODIUM 139 MMOL/L (135-145)
[2020-06-14 12:17] LABS: CALCIUM 9.2 MG/DL (8.5-10.1)
[2020-06-14 12:19] LABS: GLUCOSE 98 MG/DL (70-105); TOTAL PROTEIN 7.4 GM/DL (6.4-8.2)
[2020-06-14 12:20] LABS: BILIRUBIN,TOTAL 0.6 MG/DL (0.1-1.0); CARBON DIOXIDE 21 MMOL/L (21-32)
[2020-06-14 12:22] LABS: ALKALINE PHOSPHATASE 72 U/L (40-136)
[2020-06-14 12:23] LABS: CREATININE SERUM 0.56 MG/DL (0.60-1.30); GFR ESTIMATED > 60
[2020-06-14 12:24] LABS: BUN/CREATININE RATIO 29
[2020-06-14 12:25] LABS: BASOPHILS # (AUTO) 0.1 10^3/uL (0.0-0.1); BASOPHILS % (AUTO) 0 % (0-10); EOSINOPHILS % (AUTO) 0 % (0-10); HEMATOCRIT 35 % (35-52); HEMOGLOBIN 12.2 g/dL (11.5-16.0); LYMPHOCYTES % (AUTO) 26 % (12-44); MEAN CORPUSCULAR HEMOGLOBIN 28 pg (25-34); MEAN CORPUSCULAR HGB CONC 35 g/dL (32-36); MEAN CORPUSCULAR VOLUME 82 fL (80-99); MEAN PLATELET VOLUME 10.6 fL (9.0-12.2); MONOCYTES # (AUTO) 0.9 10^3/uL (0.0-1.0); MONOCYTES % (AUTO) 8 % (0-12); NEUTROPHILS # (AUTO) 7.4 10^3/uL (1.8-7.8); NEUTROPHILS % (AUTO) 65 % (42-75); PLATELET COUNT 244 10^3/uL (130-400); WHITE BLOOD COUNT 11.4 10^3/uL (4.3-11.0)
[2020-06-14 12:25] LABS: ACETAMINOPHEN < 10 UG/ML (10-30); SALICYLATE < 5.0 MG/DL (5.0-20.0)
[2020-06-14 12:26] LABS: ALANINE AMINOTRANSFERASE 12 U/L (0-55); CREATINE KINASE 44 U/L (29-168); MAGNESIUM 2.1 MG/DL (1.6-2.4)
[2020-06-14 12:28] LABS: INR 1.1 (0.8-1.4); PROTHROMBIN TIME PATIENT 14.5 SEC (12.2-14.7)
[2020-06-14 12:33] LABS: CREATINE KINASE MB 2.1 NG/ML (<6.6)
--- NOTE | 2020-06-14 12:42 | Diagnostic Imaging Report ---
PROCEDURE: CT head wo r/o stroke. TECHNIQUE: Multiple contiguous axial images were obtained through the brain without the use of intravenous contrast. Auto Exposure Controls were utilized during the CT exam to meet ALARA standards for radiation dose reduction. INDICATION: Seizures and unresponsive. Compared with head CT 02/11/2016. FINDINGS? Somewhat linear configured hypodensity in focal volume loss and encephalomalacia in the lateral high right frontal lobe is an unchanged finding. No new focal brain parenchymal abnormality. No findings of focal or generalized cerebral edema. There is no hemorrhage. No suspicious, asymmetric, intraluminal, arterial hyperdensities. No findings of an elevated pressure. Midline structures are nondisplaced. Orbits, sinuses and calvarium nonacute. IMPRESSION: Stable chronic right frontal lobe encephalomalacia and focal volume loss. No new abnormality, hemorrhage or acute-appearing pathology. Dictated by: Dictated on workstation # [id number]
--- NOTE | 2020-06-14 12:51 | Diagnostic Imaging Report ---
EXAMINATION: Supine AP chest at 12:41 PM. INDICATION: Seizure activity. FINDINGS: The heart size is within normal limits and stable when compared to 09/20/2019. The lungs are clear. There is no sign of failure, pneumonia, or pleural effusion. The mediastinum is not widened. The osseous structures are intact. The orthopedic hardware overlying the lower cervical spine seen on the prior study is again evident. IMPRESSION: There is no evidence for active disease. Dictated by: Dictated on workstation # [id number]
[2020-06-14 13:30] VITALS: BP 105/90
[2020-06-14] MEDS ORDERED: D5 1/2 NS W/KCL 20 MEQ/L 1,000 ML IV SCH (14:00)
[2020-06-14] MEDS ORDERED: LORazepam INJ 2 MG/ML (ATIVAN) VIAL IVP PRN (14:00)
[2020-06-14] MEDS ORDERED: ONDANSETRON 4 MG/2 ML (SDV) Z0FRAN IVP PRN (14:00)
[2020-06-15] MEDS ORDERED: cefTRIAXone 1,000 MG/SWFI 10 ML IV PUSH IV SCH ×2 (13:00)
--- NOTE | 2020-06-18 13:19 | Short Stay Summary-Hospitalist ---
Short Stay Diagnosis D/C Date Jun 14, 2020 at 23:44 Altered Mental Status Meth Intoxication Seizure like activity Quadraplegia Patient left AMA prior to being seen QUINTEN IRENE MD Jun 18, 2020 13:19
== END 2020-06-14 23:44 | disposition left against medical advice (07) ==
LOC: EDUNIT# 11:10 → ER 11:18 → UNDOADMOB 12:50 → ICU 12:50 → UNDODISOB 23:35
PROVIDERS: ADMIT Family Medicine; ATTEND Family Medicine
DX: R41.82 Altered mental status, unspecified (principal); G82.50 Quadriplegia, unspecified; K21.9 Gastro-esophageal reflux disease without esophagitis; N39.0 Urinary tract infection, site not specified; F41.9 Anxiety disorder, unspecified; F17.210 Nicotine dependence, cigarettes, uncomplicated; Z79.899 Other long term (current) drug therapy; Z88.0 Allergy status to penicillin; Z88.8 Allergy status to other drugs, medicaments and biological substances
CPT/HCPCS: 36415; 51701; 70450; 71045; 80053; 80306; 80320; 80329; 81000; 82550; 82553; 83735; 83874; 84703; 85025; 85610; 85730; 87077; 87088; 87186; 93041

== ENCOUNTER 2020-08-22 22:30 | Inpatient (IN) | payer MEDICARE, MEDICAID ==
[~2020-08-22] VITALS: Ht 160 cm; Wt 50.7 kg
[2020-08-22] MEDS ORDERED: RT-ALBUTEROL SULF 2.5 MG/3 ML PRE-MIX VIAL ONE (22:37)
[2020-08-22 22:47] VITALS: BP_SYST 98
[2020-08-22 22:58] LABS: BASOPHILS # (AUTO) 0.1 10^3/uL (0.0-0.1); BASOPHILS % (AUTO) 1 % (0-10); EOSINOPHILS % (AUTO) 1 % (0-10); HEMATOCRIT 34 % (35-52); HEMOGLOBIN 11.5 g/dL (11.5-16.0); LYMPHOCYTES # (AUTO) 2.4 10^3/uL (1.0-4.0); LYMPHOCYTES % (AUTO) 29 % (12-44); MEAN CORPUSCULAR HEMOGLOBIN 30 pg (25-34); MEAN CORPUSCULAR HGB CONC 34 g/dL (32-36); MEAN CORPUSCULAR VOLUME 88 fL (80-99); MONOCYTES # (AUTO) 0.9 10^3/uL (0.0-1.0); MONOCYTES % (AUTO) 11 % (0-12); NEUTROPHILS # (AUTO) 4.8 10^3/uL (1.8-7.8); NEUTROPHILS % (AUTO) 59 % (42-75); PLATELET COUNT 413 10^3/uL (130-400); WHITE BLOOD COUNT 8.3 10^3/uL (4.3-11.0)
[2020-08-22 23:16] LABS: BILIRUBIN,URINE NEGATIVE (NEGATIVE); CLARITY,URINE SL CLOUDY; COLOR,URINE YELLOW; GLUCOSE, URINE (UA) NEGATIVE (NEGATIVE); KETONES,URINE 3+ (NEGATIVE); LEUKOCYTE ESTERASE ,URINE 1+ (NEGATIVE); NITRITE,URINE POSITIVE (NEGATIVE); PROTEIN,URINE 2+ (NEGATIVE)
[2020-08-22 23:20] LABS: ALANINE AMINOTRANSFERASE 13 U/L (0-55); ALBUMIN 3.7 GM/DL (3.2-4.5); ALKALINE PHOSPHATASE 60 U/L (40-136); BILIRUBIN,TOTAL 0.9 MG/DL (0.1-1.0); BUN/CREATININE RATIO 27; CALCIUM 8.6 MG/DL (8.5-10.1); CARBON DIOXIDE 17 MMOL/L (21-32); CHLORIDE 108 MMOL/L (98-107); CREATININE SERUM 0.56 MG/DL (0.60-1.30); GFR ESTIMATED > 60; GLUCOSE 91 MG/DL (70-105); MAGNESIUM 1.9 MG/DL (1.6-2.4); SALICYLATE < 5.0 MG/DL (5.0-20.0); SODIUM 140 MMOL/L (135-145)
[2020-08-22 23:24] LABS: AMORPHOUS SEDIMENT,UR MOD AMOR PHOSPHATE /LPF; BACTERIA,URINE LARGE /HPF; SQUAMOUS EPITHELIAL CELL,UR 25-50 /HPF; TRIPLE PHOSPHATE CRYSTAL,UR MODERATE /LPF; WBC,URINE 50-100 /HPF
[2020-08-22 23:26] LABS: ERYTHROCYTE SEDIMENTATION RATE 9 MM/HR (0-20)
[2020-08-22 23:28] LABS: AMPHETAMINE SCREEN, URINE POSITIVE (NEGATIVE); BARBITURATE SCREEN URINE NEGATIVE (NEGATIVE); BENZODIAZEPINES SCREEN URINE NEGATIVE (NEGATIVE); CANNABINOID SCREEN, URINE POSITIVE (NEGATIVE); COCAINE SCREEN URINE NEGATIVE (NEGATIVE); METHADONE STAT NEGATIVE (NEGATIVE); METHAMPHETAMINE SCREEN URINE S POSITIVE (NEGATIVE); OPIATE SCREEN URINE NEGATIVE (NEGATIVE); OXYCODONE STAT NEGATIVE (NEGATIVE); PROPOXYPHENE STAT NEGATIVE (NEGATIVE); TRICYCLIC ANTIDEPRESSANTS SCRE NEGATIVE (NEGATIVE)
[2020-08-22 23:29] LABS: ACETAMINOPHEN < 10 UG/ML (10-30)
[2020-08-22] MEDS ORDERED: MEROPENEM 500 MG in WATER (STERILE) FOR INJECTION 10 ML IV ONE (23:45)
[2020-08-23] MEDS ORDERED: MAGNESIUM 1 GM/100 ML IVPB 100 ML IV ONE
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
[2020-08-23] MEDS ORDERED: PROPOFOL DRIP (ICU) 100 ML IV SCH (01:00)
[2020-08-23] MEDS ORDERED: LACTATED RINGERS 1,000 ML IV ONE ×3 (01:26→02:45)
[2020-08-23 01:40] VITALS: BP_SYST 98
[2020-08-23] MEDS ORDERED: MAGNESIUM 1 GM/D5W 100 ML IVPB IV ONE (02:00)
[2020-08-23] MEDS: LACTATED RINGERS 1,000 ML IV SCH ×3 (02:16→16:36)
[2020-08-23 02:36] LABS: BASOPHILS # (AUTO) 0.1 10^3/uL (0.0-0.1); BASOPHILS % (AUTO) 1 % (0-10); EOSINOPHILS # (AUTO) 0.1 10^3/uL (0.0-0.3); EOSINOPHILS % (AUTO) 1 % (0-10); HEMATOCRIT 33 % (35-52); HEMOGLOBIN 10.9 g/dL (11.5-16.0); LYMPHOCYTES # (AUTO) 3.5 10^3/uL (1.0-4.0); LYMPHOCYTES % (AUTO) 36 % (12-44); MEAN CORPUSCULAR HEMOGLOBIN 30 pg (25-34); MEAN CORPUSCULAR HGB CONC 33 g/dL (32-36); MEAN CORPUSCULAR VOLUME 90 fL (80-99); MEAN PLATELET VOLUME 10.5 fL (9.0-12.2); MONOCYTES # (AUTO) 1.1 10^3/uL (0.0-1.0); MONOCYTES % (AUTO) 11 % (0-12); NEUTROPHILS # (AUTO) 5.1 10^3/uL (1.8-7.8); NEUTROPHILS % (AUTO) 52 % (42-75); PLATELET COUNT 380 10^3/uL (130-400); WHITE BLOOD COUNT 9.8 10^3/uL (4.3-11.0)
[2020-08-23] MEDS: NS IV 500 ML 500 ML IV SCH ×2 (02:37→03:03)
[2020-08-23 02:56] LABS: BUN/CREATININE RATIO 23; CALCIUM 8.1 MG/DL (8.5-10.1); CARBON DIOXIDE 16 MMOL/L (21-32); CHLORIDE 112 MMOL/L (98-107); CREATINE KINASE 80 U/L (29-168); CREATININE SERUM 0.47 MG/DL (0.60-1.30); GFR ESTIMATED > 60; GLUCOSE 130 MG/DL (70-105); MAGNESIUM 2.8 MG/DL (1.6-2.4); POTASSIUM 3.3 MMOL/L (3.6-5.0); SODIUM 141 MMOL/L (135-145)
[2020-08-23 03:12] LABS: ABG OXYGEN SATURATION 98 % (94-100); ABG PCO2 28 MMHG (35-45); ABG PH 7.41 (7.37-7.43); ABG PO2 77 MMHG (79-93); ABG TCO2 19.7 MMOL/L (21.0-31.0)
[2020-08-23] MEDS: KCL 20 MEQ TAB (K-DUR) PO SCH (03:13)
[2020-08-23] MEDS: MAGNESIUM 1 GM/100 ML IVPB 100 ML IV SCH (03:13)
[2020-08-23] MEDS: inSUlin ASPART (NovoLOG) 1 UNIT/0.01 ML (CHARGE PER UNIT) SC SCH ×4 (03:13→23:33)
[2020-08-23] MEDS: POTASSIUM CL 10MEQ/50ML IVPB 50 ML IV SCH ×7 (03:13→08:14)
[2020-08-23 03:15] LABS: ALLENS TEST YES-POS
[2020-08-23 03:16] LABS: INSPIRED O2 30%; PATIENT TEMP 32.5; VENTILATOR YES
[2020-08-23] MEDS: NOREPINEPHRINE 8 MG/250 ML 250 ML IV SCH ×2 (03:29→04:10)
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
[2020-08-23] MEDS: MEROPENEM 500 MG/SWFI 10 ML IV PUSH IV SCH ×8 (05:15→23:36)
--- NOTE | 2020-08-23 06:54 | Occ Therapy Progress Note ---
Therapy Progress Note Pt is currently intubated. OT will continue to monitor pt status and initiate treatment when pt is medically stable and able to actively participate with skilled therapy. ALCIRA WELLS Aug 23, 2020 06:54
[2020-08-23 07:25] VITALS: BP 84/54
--- NOTE | 2020-08-23 07:32 | Diagnostic Imaging Report ---
INDICATION: Overdose, respiratory failure COMPARISON: 06/14/2020 TECHNIQUE: 2 radiographs of the chest dated 08/22/2020 FINDINGS: Endotracheal tube is present with the distal tip overlying the tracheal air column, approximately 2.5 cm above the level of the patsy. Enteric catheter is in place with the distal tip extending into the stomach though the sidehole is overlying the distal esophagus. Postsurgical changes within the cervical spine are again identified. The cardiac silhouette is within normal limits in size. No significant pulmonary vascular congestion. The lungs are clear. No pleural effusion. No pneumothorax. No acute osseous abnormality. IMPRESSION: Lines and tubes as described above, including an enteric catheter with the sidehole within the distal esophagus. If intragastric placement is desired, then recommend advancement of at least 6 cm. No acute cardiopulmonary abnormality. Dictated by: Dictated on workstation # [id number]
--- NOTE | 2020-08-23 08:12 | Physical Therapy Progress Note ---
Therapy Progress Note Patient currently sedated and intubated. PT will continue to monitor patient status and initiate treatment when patient is medically stable and able to actively participate with skilled therapy. NINA PARRA PT Aug 23, 2020 08:12
[2020-08-23] MEDS: LORazepam INJ 2 MG/ML (ATIVAN) VIAL IVP PRN ×2 (08:18→23:28)
[2020-08-23] MEDS: ENOXAPARIN 30 MG/0.3 ML (LOVENOX) SYR SC SCH (08:34)
[2020-08-23] MEDS: FAMOTIDINE 20MG/2ML IV (PEPCID) IVP SCH ×2 (08:34→20:08)
[2020-08-23 11:09] VITALS: BP 118/62
[2020-08-23] MEDS ORDERED: MEGE40TA5 PO (13:15)
[2020-08-23] MEDS ORDERED: GABA300C PO (13:15)
[2020-08-23] MEDS ORDERED: RT-ALBUINH INH (13:15)
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
[2020-08-23 15:31] VITALS: BP 113/59
[2020-08-23] MEDS: RT-ALBUTEROL/IPRATROPIUM 3 ML (DUONEB) VIAL INH PRN (15:31)
[2020-08-23 18:05] VITALS: BP 115/62
--- NOTE | 2020-08-23 18:34 | Physician Query Clarification ---
Physician Query-General Query to Physician: The medical record reflects the following clinical scenario: The patient, in the setting of History/Risk factors, Quadriplegia, Baclofen Overdose, Seizures Clinical Findings: Intubated prior to arrival for GCS of 3, GCS remains 7, Treatment Mechanical ventilation, 40% FIO2 Question: Do you agree with the impression of Acute Respiratory Failure per Dr. Litzy Jensen? If you agree, please document in Progress Notes or Discharge Summary. 1. Yes; will document Acute Respiratory Failure in the Progress Notes 2. No; will continue to document Respiratory Depression the Progress Notes 3. Other; will document explanation of clinical findings 4. Clinically undetermined; no explanation for clinical findings Please clarify and document your clinical opinion in the Progress Notes and Discharge Summary including the definitive and/or presumptive diagnosis, (suspected or probable), related to the above clinical findings. Please include clinical findings supporting your diagnosis. In responding to this query, please exercise your independent professional judgment. The purpose of this communication is to more accurately reflect the complexity of your patients condition. The fact that a question is asked does not imply that any particular answer is desired or expected. Please remember a lack of response to the above will prompt a phone page by CDI/coding staff Thank you for timely response to this clarification. Freda Morgan [phone] PHYSICIAN RESPONSE: Based on the clinical findings in the record, please respond to the query above on this document as an addendum. Physician Response: Physician Response 1 acute respiratory failure If you have questions please contact: Ferry Boat Captain: Ext: Thank you for your time and cooperation. Clinical Mental Health Case Manager/Ferry Boat Captain This is a permanent part of the medical record FREDA MORGAN Aug 23, 2020 18:34 REKHA BLANTON MD Aug 24, 2020 19:22
[2020-08-23 22:14] VITALS: BP 143/97
[2020-08-23] MEDS ORDERED: ALBUMIN 25% 25 GM/100 ML 200 ML IV ONE (22:15)
[2020-08-24] MEDS: LACTATED RINGERS 1,000 ML IV SCH ×3 (00:30→21:22)
[2020-08-24 02:16] VITALS: BP 143/97
[2020-08-24 02:47] LABS: ABG BASE EXCESS -2.9 MMOL/L (-2.5-2.5); ABG OXYGEN SATURATION 94 % (94-100); ABG PCO2 34 MMHG (35-45); ABG PH 7.41 (7.37-7.43); ABG PO2 70 MMHG (79-93); ABG TCO2 22.1 MMOL/L (21.0-31.0)
[2020-08-24 02:49] LABS: BASOPHILS # (AUTO) 0.1 10^3/uL (0.0-0.1); BASOPHILS % (AUTO) 0 % (0-10); EOSINOPHILS # (AUTO) 0.1 10^3/uL (0.0-0.3); EOSINOPHILS % (AUTO) 0 % (0-10); HEMATOCRIT 32 % (35-52); HEMOGLOBIN 10.9 g/dL (11.5-16.0); LYMPHOCYTES # (AUTO) 4.7 10^3/uL (1.0-4.0); LYMPHOCYTES % (AUTO) 28 % (12-44); MEAN CORPUSCULAR HEMOGLOBIN 31 pg (25-34); MEAN CORPUSCULAR HGB CONC 34 g/dL (32-36); MEAN CORPUSCULAR VOLUME 90 fL (80-99); MEAN PLATELET VOLUME 10.4 fL (9.0-12.2); MONOCYTES # (AUTO) 1.6 10^3/uL (0.0-1.0); MONOCYTES % (AUTO) 9 % (0-12); NEUTROPHILS # (AUTO) 10.4 10^3/uL (1.8-7.8); NEUTROPHILS % (AUTO) 61 % (42-75); PLATELET COUNT 377 10^3/uL (130-400); WHITE BLOOD COUNT 16.9 10^3/uL (4.3-11.0)
[2020-08-24 02:50] LABS: ALLENS TEST YES-POS
[2020-08-24 02:51] LABS: INSPIRED O2 21%; PATIENT TEMP 37.2; VENTILATOR YES
[2020-08-24 03:10] LABS: ANISOCYTOSIS MODERATE; EOSINOPHILS % (MANUAL) 3 %; LYMPHOCYTES % (MANUAL) 26 %; MICROCYTOSIS SLIGHT; MONOCYTES % (MANUAL) 8 %; NEUTROPHILS % (MANUAL) 63 %; POIKILOCYTOSIS SLIGHT; TARGET CELLS SLIGHT
[2020-08-24 03:12] LABS: ALANINE AMINOTRANSFERASE 9 U/L (0-55); ALBUMIN 3.6 GM/DL (3.2-4.5); ALKALINE PHOSPHATASE 49 U/L (40-136); BILIRUBIN,TOTAL 0.8 MG/DL (0.1-1.0); BUN/CREATININE RATIO 11; CALCIUM 8.3 MG/DL (8.5-10.1); CARBON DIOXIDE 20 MMOL/L (21-32); CHLORIDE 110 MMOL/L (98-107); CREATININE SERUM 0.53 MG/DL (0.60-1.30); GFR ESTIMATED > 60; GLUCOSE 100 MG/DL (70-105); MAGNESIUM 1.8 MG/DL (1.6-2.4); PHOSPHORUS 3.1 MG/DL (2.3-4.7); POTASSIUM 3.6 MMOL/L (3.6-5.0); SODIUM 140 MMOL/L (135-145); TOTAL PROTEIN 5.8 GM/DL (6.4-8.2); TRIGLYCERIDES 53 MG/DL (<150)
[2020-08-24] MEDS: KCL 20 MEQ TAB (K-DUR) PO SCH (03:15)
[2020-08-24] MEDS: inSUlin ASPART (NovoLOG) 1 UNIT/0.01 ML (CHARGE PER UNIT) SC SCH ×4 (03:16→23:21)
[2020-08-24] MEDS: MAGNESIUM 1 GM/100 ML IVPB 100 ML IV SCH (03:16)
[2020-08-24] MEDS: POTASSIUM CL 10MEQ/50ML IVPB 50 ML IV SCH ×3 (03:16→04:40)
--- NOTE | 2020-08-24 03:51 | Pulmonary Progress Note ---
Subjective Time Seen by a Provider: 03:47 Subjective/Events-last exam Pt is still sedate on vent however more K+. Sepsis Event Evaluation Height, Weight, BMI Height: 5'0" Weight: 100lbs. 0.4oz. [id number]; 16.56 BMI Method:Stated Focused Exam Lactate Level 08/23/20 02:25: Lactic Acid Level 1.46 Exam Exam Vital Signs Date Time Temp Pulse Resp B/P (MAP) Pulse Ox O2 Delivery O2 Flow Rate FiO2 08/24/20 03:40 94 Mechanical Ventilator 30 08/24/20 02:57 Mechanical Ventilator 30.00 08/24/20 02:57 37.1 80 16 90 Mechanical Ventilator 30.00 08/24/20 02:30 37.2 78 16 134/98 (110) 91 Mechanical Ventilator 21.00 08/24/20 02:20 Mechanical Ventilator 21.00 08/24/20 02:16 69 16 96 30 08/24/20 02:00 37.2 67 15 150/102 (118) 97 Mechanical Ventilator 30.00 08/24/20 01:00 37.0 68 15 135/95 (108) 96 Mechanical Ventilator 30.00 08/24/20 01:00 68 08/24/20 00:00 37.0 76 15 125/89 (101) 95 Mechanical Ventilator 30.00 08/23/20 23:20 96 Mechanical Ventilator 30 08/23/20 23:20 36.9 Mechanical Ventilator 30.00 08/23/20 23:00 36.9 66 15 146/98 (114) 96 Mechanical Ventilator 30.00 08/23/20 22:17 36.8 68 15 97 Mechanical Ventilator 30.00 08/23/20 22:14 68 16 97 35 08/23/20 22:00 36.8 70 16 143/97 (112) 97 Mechanical Ventilator 35.00 08/23/20 21:15 Mechanical Ventilator 35.00 08/23/20 21:00 36.7 108 18 79/59 (66) 95 Mechanical Ventilator 40.00 08/23/20 20:00 36.5 97 16 90/56 (67) 94 Mechanical Ventilator 40.00 08/23/20 19:30 94 Mechanical Ventilator 40 08/23/20 19:26 Mechanical Ventilator 40.00 08/23/20 19:00 36.6 112 16 105/69 (81) 91 Mechanical Ventilator 35.00 4/26/21 19:00 104 08/23/20 18:05 101 16 95 40 08/23/20 18:00 35.8 98 16 115/62 (79) 95 Mechanical Ventilator 35.00 08/23/20 17:00 35.8 96 21 110/55 (73) 90 Mechanical Ventilator 40.00 08/23/20 16:00 36.0 98 15 93/52 (66) 92 Mechanical Ventilator 40.00 08/23/20 16:00 91 Mechanical Ventilator 30 08/23/20 15:31 75 16 95 40 08/23/20 15:00 36.2 70 16 119/59 (79) 96 Mechanical Ventilator 40.00 08/23/20 14:00 36.3 70 16 121/60 (80) 96 Mechanical Ventilator 40.00 08/23/20 13:00 36.4 71 15 119/57 (77) 96 Mechanical Ventilator 40.00 08/23/20 12:52 72 08/23/20 12:00 36.5 78 15 114/54 (74) 92 Mechanical Ventilator 40.00 08/23/20 12:00 94 Mechanical Ventilator 30 08/23/20 11:09 79 16 91 30 08/23/20 11:00 36.7 78 16 124/63 (83) 95 Mechanical Ventilator 30.00 08/23/20 10:00 37.0 85 16 119/62 (81) 94 Mechanical Ventilator 30.00 08/23/20 09:00 37.2 92 22 108/59 (75) 94 Mechanical Ventilator 30.00 08/23/20 08:00 94 Mechanical Ventilator 30 08/23/20 08:00 37.6 96 15 96/58 (71) 93 Mechanical Ventilator 30.00 08/23/20 07:25 101 16 93 30 08/23/20 07:00 37.4 89 16 134/95 (108) 96 Mechanical Ventilator 30.00 08/23/20 06:51 96 08/23/20 06:00 37.0 90 16 136/94 (108) 96 Mechanical Ventilator 30.00 08/23/20 05:00 35.5 92 16 86/51 (63) 94 Mechanical Ventilator 30.00 08/23/20 04:30 34.5 85 16 112/75 (87) 94 Mechanical Ventilator 30.00 08/23/20 04:10 63 74/42 08/23/20 04:00 92 Mechanical Ventilator 30 08/23/20 04:00 33.7 62 15 74/42 (53) 92 Mechanical Ventilator 30.00 I & O 08/24/20 07:00 Intake Total 9445 ml Output Total 570 ml Balance 8875 ml Height & Weight Height: 5'0" Weight: 100lbs. 0.4oz. [id number]; 16.56 BMI Method:Stated General Appearance: Other (sedate on vent) HEENT: PERRL/EOMI, Pharynx Normal Neck: Full Range of Motion, Non Tender, Supple Respiratory: Chest Non Tender, Lungs Clear, Normal Breath Sounds, No Accessory Muscle Use, No Respiratory Distress Cardiovascular: Regular Rate, Rhythm, No Edema Capillary Refill: Less Than 3 Seconds Gastrointestinal: normal bowel sounds, soft Extremity: Normal Capillary Refill, No Pedal Edema Skin: Normal Color, Warm/Dry Lymphatic: No Adenopathy Results Lab Laboratory Tests 08/22/20 22:51 08/23/20 02:25 08/24/20 02:39 Assessment/Plan Assessment/Plan Acute respiratory failure secondary to OD -Vent -420, 16, 5 30% -Pt is more awake but not awake enough for extubation yet. Once pt is fully awake will proceed with extubation. -Hold sedation and await for Baclofen OD to metabolize off. -intubated 08/22 -Poison control is following Hypotension - currently resolved -IVF Bradycardia - Resolved Hx of seizures with acute seizure this morning lasting 30sec -PRN Ativan -Seisure precautions Methamphetamine and marijuanna dependance -Education Quadraplegic ASHLEY OROPEZA DO Aug 24, 2020 03:51
[2020-08-24] MEDS ORDERED: LACTATED RINGERS 1,000 ML IV SCH (04:00)
[2020-08-24] MEDS: MEROPENEM 500 MG/SWFI 10 ML IV PUSH IV SCH ×8 (05:00→23:21)
[2020-08-24] MEDS ORDERED: DexMEDEtomidine 250 ML DRIP 250 ML IV ONE (05:29)
[2020-08-24] MEDS ORDERED: hydrALAZINE (APESOLINE) 20 MG/ML VIAL IV PRN (05:30)
[2020-08-24] MEDS: DexMEDEtomidine 250 ML DRIP 250 ML IV SCH (05:41)
[2020-08-24 06:43] VITALS: BP 110/77
[2020-08-24] MEDS: RT-ALBUTEROL/IPRATROPIUM 3 ML (DUONEB) VIAL INH PRN ×3 (06:52→15:10)
--- NOTE | 2020-08-24 06:57 | Occ Therapy Progress Note ---
Therapy Progress Note Pt is currently intubated. OT will continue to monitor pt status and initiate treatment when pt is medically stable and able to actively participate with skilled therapy. ALCIRA WELLS Aug 24, 2020 06:57
[2020-08-24] MEDS ORDERED: PROPOFOL DRIP (ICU) 100 ML IV ONE (07:32)
--- NOTE | 2020-08-24 07:47 | Physical Therapy Progress Note ---
Therapy Progress Note Patient currently sedated and intubated. PT will continue to monitor patient status and initiate treatment when patient is medically stable and able to actively participate with skilled therapy. NINA PARRA PT Aug 24, 2020 07:47
[2020-08-24] MEDS: PROPOFOL DRIP (ICU) 100 ML IV SCH ×2 (08:15→19:34)
[2020-08-24] MEDS: cefTRIAXone FOR IV USE 1,000 MG in WATER (STERILE) FOR INJECTION 10 ML IV SCH (08:23)
[2020-08-24] MEDS: ENOXAPARIN 30 MG/0.3 ML (LOVENOX) SYR SC SCH (08:24)
[2020-08-24] MEDS: FAMOTIDINE 20MG/2ML IV (PEPCID) IVP SCH ×2 (08:24→20:03)
--- NOTE | 2020-08-24 08:24 | Diagnostic Imaging Report ---
Clinical indication: Patient intubated. Overdose. Exam: Portable chest x-ray upright view. Comparisons: Chest x-ray dated 08/22/2020. Findings: Patient is slightly rotated on exam. Lungs are clear. There is no pleural effusion or pneumothorax. Pulmonary vasculature and cardiac silhouette within normal limits. ET tube and feeding tube are in stable position. Feeding tube should be advanced another 6 cm to ensure good positioning. Interval placement left PICC line with tip in the caval atrial junction region. PICC line should be withdrawn roughly 4 cm to ensure better positioning. Again seen 360 degree fusion changes of the lower cervical spine noted. IMPRESSION: 1: There is no radiographic evidence of acute cardiopulmonary process. 2: There is interval placement of left PICC line with tip in the cavoatrial junction region. The PICC line should be withdrawn roughly 4 cm to ensure better positioning. 3: ET tube and feeding tube is again seen in similar position. Feeding tube should be advanced at least 6 cm to ensure improved positioning. Dictated by: Dictated on workstation # [id number]
[2020-08-24 10:26] VITALS: BP 124/91
[2020-08-24] MEDS ORDERED: LORazepam INJ 2 MG/ML (ATIVAN) VIAL IVP ONE (15:00)
[2020-08-24] MEDS: fentaNYL INJ 100 MCG/2 ML AMP IVP PRN (15:09)
[2020-08-24 15:11] VITALS: BP 147/101
[2020-08-24] MEDS ORDERED: LABETALOL HCL 20 MG/4 ML VIAL IV PRN (17:30)
--- NOTE | 2020-08-24 18:25 | Progress Note ---
Subjective Subjective/Events-last exam Afebrile. Was waking up this morning but so agitated and thrashing she could not follow directions, so Precedex drip started. Focused Exam Lactate Level 08/23/20 02:25: Lactic Acid Level 1.46 Objective Exam Last Set of Vital Signs Vital Signs Date Time Temp Pulse Resp B/P (MAP) Pulse Ox O2 Delivery O2 Flow Rate FiO2 08/24/20 16:00 36.2 83 15 147/109 (122) 92 Mechanical Ventilator 30.00 08/24/20 15:43 30 Capillary Refill : Less Than 3 Seconds I&O Intake and Output 08/24/20 00:00 Intake Total 55112 ml Output Total 815 ml Balance 54202 ml Intake Oral 0 ml IV Total 99016 ml Output Urine Total 815 ml Daily Weight Change Unsure General: Other (intubated, sedated) Lungs: Clear to Auscultation Heart: Regular Rate Abdomen: Normal Bowel Sounds, Soft Extremities: No Edema Results/Procedures Lab Laboratory Tests 08/23/20 23:33: Glucometer 113H 08/24/20 02:39: White Blood Count 16.9H, Red Blood Count 3.57L, Hemoglobin 10.9L, Hematocrit 32L , Mean Corpuscular Volume 90, Mean Corpuscular Hemoglobin 31, Mean Corpuscular Hemoglobin Concent 34, Red Cell Distribution Width 19.3H, Platelet Count 377, Mean Platelet Volume 10.4, Immature Granulocyte % (Auto) 1, Neutrophils (%) (Auto) 61, Lymphocytes (%) (Auto) 28, Monocytes (%) (Auto) 9, Eosinophils (%) (Auto) 0, Basophils (%) (Auto) 0, Neutrophils # (Auto) 10.4H, Lymphocytes # (Auto) 4.7H, Monocytes # (Auto) 1.6H, Eosinophils # (Auto) 0.1, Basophils # (Auto) 0.1, Immature Granulocyte # (Auto) 0.1, Neutrophils % (Manual) 63, Lymphocytes % (Manual) 26, Monocytes % (Manual) 8, Eosinophils % (Manual) 3, Poikilocytosis SLIGHT, Anisocytosis MODERATE, Microcytosis SLIGHT, Macrocytosis SLIGHT, Target Cells SLIGHT, Blood Gas Puncture Site RT RAD, Blood Gas Patient Temperature 37.2, Arterial Blood pH 7.41, Arterial Blood Partial Pressure CO2 34L, Arterial Blood Partial Pressure O2 70L, Arterial Blood HCO3 21L, Arterial Blood Total CO2 22.1, Arterial Blood Oxygen Saturation 94, Arterial Blood Base Excess -2.9L, Christian Test YES-POS, Blood Gas Ventilator Setting YES, Blood Gas Inspired Oxygen 21%, Sodium Level 140, Potassium Level 3.6, Chloride Level 110H, Carbon Dioxide Level 20L, Anion Gap 10, Blood Urea Nitrogen 6L, Creatinine 0.53L , Estimat Glomerular Filtration Rate > 60, BUN/Creatinine Ratio 11, Glucose Level 100, Calcium Level 8.3L, Corrected Calcium 8.6, Phosphorus Level 3.1, M agnesium Level 1.8, Total Bilirubin 0.8, Aspartate Amino Transf (AST/SGOT) 13, Alanine Aminotransferase (ALT/SGPT) 9, Alkaline Phosphatase 49, Total Protein 5.8L, Albumin 3.6, Triglycerides Level 53 08/24/20 11:09: Glucometer 128H 08/24/20 17:10: Glucometer 120H Microbiology 08/23/20 Gram Stain - Final, Resulted 08/23/20 Sputum Culture - Preliminary, Resulted Slight Growth Present 08/23/20 Blood Culture - Preliminary, Resulted No growth 08/22/20 Urine Culture - Final, Complete Proteus vulgaris Radiology CXR: no acute cardiopulmonary findings Assessment/Plan Assessment/Plan (1) Medication overdose Status: Acute Assessment & Plan: Monitoring and treatment per poison control recommendations. Received magnesium for prolonged QT. Currently still unresponsive, intubated. player services representative consult when medically stable. 08/24 becoming more alert but without meaningful awareness and very agitated, wean Precedex as able. Qualifiers: Qualified Codes: T50.902A - Poisoning by unspecified drugs, medicaments and biological substances, intentional self-harm, initial encounter (2) Respiratory depression Status: Acute Assessment & Plan: Secondary to overdose, requiring mechanical ventilation, appreciate Pulm recommendations. (3) UTI (urinary tract infection) Status: Acute Assessment & Plan: Urine culture with proteus, sensitivities pending Qualifiers: Qualified Codes: N39.0 - Urinary tract infection, site not specified (4) Polysubstance abuse Status: Chronic (5) Anxiety Status: Chronic (6) Quadriplegia following spinal cord injury Status: Chronic (7) Seizure Status: Acute Assessment & Plan: Keppra started, improved. Likely due to baclofen overdose. Monitor closely. (8) DVT prophylaxis Status: Acute Assessment & Plan: Enoxaparin REKHA BLANTON MD Aug 24, 2020 18:25
[2020-08-24 18:47] VITALS: BP 116/85
[2020-08-24 21:53] VITALS: BP 114/77
[2020-08-25 02:20] LABS: ABG BASE EXCESS 1.1 MMOL/L (-2.5-2.5); ABG OXYGEN SATURATION 95 % (94-100); ABG PCO2 33 MMHG (35-45); ABG PH 7.48 (7.37-7.43); ABG PO2 64 MMHG (79-93); ABG TCO2 25.7 MMOL/L (21.0-31.0)
[2020-08-25 02:21] LABS: ALLENS TEST YES-POS; INSPIRED O2 30%; PATIENT TEMP 35.5; VENTILATOR YES
[2020-08-25 02:32] LABS: BASOPHILS # (AUTO) 0.1 10^3/uL (0.0-0.1); BASOPHILS % (AUTO) 0 % (0-10); EOSINOPHILS # (AUTO) 0.9 10^3/uL (0.0-0.3); EOSINOPHILS % (AUTO) 5 % (0-10); HEMATOCRIT 35 % (35-52); LYMPHOCYTES # (AUTO) 4.8 10^3/uL (1.0-4.0); LYMPHOCYTES % (AUTO) 31 % (12-44); MEAN CORPUSCULAR HEMOGLOBIN 31 pg (25-34); MEAN CORPUSCULAR HGB CONC 35 g/dL (32-36); MEAN CORPUSCULAR VOLUME 89 fL (80-99); MEAN PLATELET VOLUME 10.5 fL (9.0-12.2); MONOCYTES # (AUTO) 1.8 10^3/uL (0.0-1.0); MONOCYTES % (AUTO) 11 % (0-12); NEUTROPHILS # (AUTO) 8.2 10^3/uL (1.8-7.8); NEUTROPHILS % (AUTO) 52 % (42-75); PLATELET COUNT 389 10^3/uL (130-400); WHITE BLOOD COUNT 15.7 10^3/uL (4.3-11.0)
[2020-08-25] MEDS: DexMEDEtomidine 250 ML DRIP 250 ML IV SCH ×2 (02:32→23:11)
[2020-08-25 02:56] LABS: BUN/CREATININE RATIO 4; CALCIUM 7.9 MG/DL (8.5-10.1); CARBON DIOXIDE 23 MMOL/L (21-32); CHLORIDE 113 MMOL/L (98-107); CREATININE SERUM 0.46 MG/DL (0.60-1.30); GFR ESTIMATED > 60; GLUCOSE 108 MG/DL (70-105); MAGNESIUM 1.8 MG/DL (1.6-2.4); PHOSPHORUS 2.7 MG/DL (2.3-4.7); POTASSIUM 3.6 MMOL/L (3.6-5.0); SODIUM 146 MMOL/L (135-145)
[2020-08-25 02:58] VITALS: BP 111/80
[2020-08-25] MEDS: POTASSIUM CL 10MEQ/50ML IVPB 50 ML IV SCH ×3 (03:32→03:50)
[2020-08-25] MEDS: MAGNESIUM 1 GM/100 ML IVPB 100 ML IV SCH (03:52)
[2020-08-25] MEDS: KCL 20 MEQ TAB (K-DUR) PO SCH (03:53)
[2020-08-25] MEDS: inSUlin ASPART (NovoLOG) 1 UNIT/0.01 ML (CHARGE PER UNIT) SC SCH ×4 (03:53→23:23)
[2020-08-25] MEDS: MEROPENEM 500 MG/SWFI 10 ML IV PUSH IV SCH ×8 (04:58→23:12)
[2020-08-25] MEDS: cefTRIAXone FOR IV USE 1,000 MG in WATER (STERILE) FOR INJECTION 10 ML IV SCH (04:58)
[2020-08-25 06:35] VITALS: BP 124/95
--- NOTE | 2020-08-25 07:19 | Diagnostic Imaging Report ---
INDICATION: Overdose Portable chest shows normal heart size and vascularity. The lungs are clear. There is no effusion or pneumothorax. ET tube is in good position. An OG tube is in the stomach. PICC line tip is in the SVC. Chest is similar to a study from 08/24/2020. IMPRESSION: Stable chest. Dictated by: Dictated on workstation # [id number]
--- NOTE | 2020-08-25 07:59 | Physical Therapy Progress Note ---
Therapy Progress Note Patient currently sedated and intubated. PT will continue to monitor patient status and initiate treatment when patient is medically stable and able to actively participate with skilled therapy. ANA MACHADO PT Aug 25, 2020 07:59
[2020-08-25] MEDS: ENOXAPARIN 30 MG/0.3 ML (LOVENOX) SYR SC SCH (08:01)
[2020-08-25] MEDS: FAMOTIDINE 20MG/2ML IV (PEPCID) IVP SCH ×2 (08:01→19:47)
[2020-08-25] MEDS ORDERED: D5W 1000 ML IV SOLUTION 1,000 ML ONE (08:09)
[2020-08-25] MEDS: D5W 1000 ML IV SOLUTION 1,000 ML IV SCH ×2 (08:17→23:12)
[2020-08-25] MEDS: LORazepam INJ 2 MG/ML (ATIVAN) VIAL IVP PRN (08:19)
[2020-08-25] MEDS: fentaNYL INJ 100 MCG/2 ML AMP IVP PRN (08:19)
[2020-08-25] MEDS: PROPOFOL DRIP (ICU) 100 ML IV SCH ×2 (08:56→21:16)
[2020-08-25 09:49] VITALS: BP 119/97
--- NOTE | 2020-08-25 13:48 | Progress Note ---
Subjective Subjective/Events-last exam Had recurrent low temperature and required resumption of Deepti Hugger, no seizures. Focused Exam Lactate Level 08/23/20 02:25: Lactic Acid Level 1.46 Objective Exam Last Set of Vital Signs Vital Signs Date Time Temp Pulse Resp B/P (MAP) Pulse Ox O2 Delivery O2 Flow Rate FiO2 08/25/20 12:37 80 08/25/20 12:00 37.4 16 117/95 (102) 97 Mechanical Ventilator 30.00 08/25/20 11:49 30 Capillary Refill : Less Than 3 Seconds I&O Intake and Output 08/25/20 00:00 Intake Total 81272 ml Output Total 3270 ml Balance 28686 ml Intake Oral 0 ml IV Total 69350 ml Other 120 ml Output Urine Total 3270 ml General: Other (intubated, sedated) Lungs: Other (ronchi) Heart: Regular Rate, No Murmurs Abdomen: Normal Bowel Sounds, Soft Extremities: No Edema Results/Procedures Lab Laboratory Tests 08/24/20 17:10: Glucometer 120H 08/24/20 23:08: Glucometer 105 08/25/20 02:10: White Blood Count 15.7H, Red Blood Count 3.92, Hemoglobin 12.0, Hematocrit 35, Mean Corpuscular Volume 89, Mean Corpuscular Hemoglobin 31, Mean Corpuscular Hemoglobin Concent 35, Red Cell Distribution Width 19.2H, Platelet Count 389, Me an Platelet Volume 10.5, Immature Granulocyte % (Auto) 0, Neutrophils (%) (Auto) 52, Lymphocytes (%) (Auto) 31, Monocytes (%) (Auto) 11, Eosinophils (%) (Auto) 5, Basophils (%) (Auto) 0, Neutrophils # (Auto) 8.2H, Lymphocytes # (Auto) 4.8H, Monocytes # (Auto) 1.8H, Eosinophils # (Auto) 0.9H, Basophils # (Auto) 0.1, Immature Granulocyte # (Auto) 0.1, Blood Gas Puncture Site R BRACH, Blood Gas Patient Temperature 35.5, Arterial Blood pH 7.48H, Arterial Blood Partial Pressure CO2 33L, Arterial Blood Partial Pressure O2 64L, Arterial Blood HCO3 25, Arterial Blood Total CO2 25.7, Arterial Blood Oxygen Saturation 95, Arterial Blood Base Excess 1.1, Christian Test YES-POS, Blood Gas Ventilator Setting YES, Blood Gas Inspired Oxygen 30%, Sodium Level 146H, Potassium Level 3.6, Chloride Level 113H, Carbon Dioxide Level 23, Anion Gap 10, Blood Urea Nitrogen 2L, Creatinine 0.46L, Estimat Glomerular Filtration Rate > 60, BUN/Creatinine Ratio 4, Glucose Level 108H, Calcium Level 7.9L, Phosphorus Level 2.7, Magnesium Level 1.8 08/25/20 11:35: Glucometer 109 Microbiology 08/23/20 Gram Stain - Final, Resulted 08/23/20 Sputum Culture - Preliminary, Resulted Streptococcus pneumoniae Usual upper respiratory ugo 08/23/20 Blood Culture - Preliminary, Resulted No growth 08/22/20 Urine Culture - Final, Complete Proteus vulgaris Radiology CXR: no acute cardiopulmonary findings Assessment/Plan Assessment/Plan (1) Medication overdose Status: Acute Assessment & Plan: Monitoring and treatment per poison control recommendations. Received magnesium for prolonged QT. Currently still unresponsive, intubated. caseworker protective services consult when medically stable. 08/24 becoming more alert but without meaningful awareness and very agitated, wean Precedex as able. 08/25 continuing Precdex today per [facility] ICU due to persistent signs of medication toxicity (hypothermia) Qualifiers: Qualified Codes: T50.902A - Poisoning by unspecified drugs, medicaments and biological substances, intentional self-harm, initial encounter (2) UTI (urinary tract infection) Status: Acute Assessment & Plan: Urine culture with proteus, resistant to ceftriaxone, is on meropenem Qualifiers: Qualified Codes: N39.0 - Urinary tract infection, site not specified (3) Polysubstance abuse Status: Chronic (4) Anxiety Status: Chronic (5) Quadriplegia following spinal cord injury Status: Chronic (6) Seizure Status: Acute Assessment & Plan: Keppra started, improved. Likely due to baclofen overdose. Monitor closely. (7) Respiratory failure Status: Acute Assessment & Plan: Secondary to overdose, requiring mechanical ventilation, appreciate Pulm recommendations. Qualifiers: (8) DVT prophylaxis Status: Acute Assessment & Plan: Enoxaparin REKHA BLANTON MD Aug 25, 2020 13:48
[2020-08-25 14:07] VITALS: BP 113/88
[2020-08-25 15:28] LABS: BUN/CREATININE RATIO 4; CALCIUM 8.2 MG/DL (8.5-10.1); CARBON DIOXIDE 24 MMOL/L (21-32); CHLORIDE 110 MMOL/L (98-107); CREATININE SERUM 0.49 MG/DL (0.60-1.30); GFR ESTIMATED > 60; GLUCOSE 109 MG/DL (70-105); POTASSIUM 3.8 MMOL/L (3.6-5.0); SODIUM 143 MMOL/L (135-145)
[2020-08-25 18:17] VITALS: BP 109/86
[2020-08-25 21:34] VITALS: BP 94/71
[2020-08-26] MEDS: LACTATED RINGERS 1,000 ML IV SCH (02:00)
[2020-08-26 02:02] VITALS: BP 118/91
[2020-08-26 03:21] LABS: BASOPHILS # (AUTO) 0.1 10^3/uL (0.0-0.1); BASOPHILS % (AUTO) 1 % (0-10); EOSINOPHILS % (AUTO) 8 % (0-10); HEMATOCRIT 34 % (35-52); HEMOGLOBIN 11.8 g/dL (11.5-16.0); LYMPHOCYTES % (AUTO) 31 % (12-44); MEAN CORPUSCULAR HEMOGLOBIN 31 pg (25-34); MEAN CORPUSCULAR HGB CONC 35 g/dL (32-36); MEAN CORPUSCULAR VOLUME 90 fL (80-99); MEAN PLATELET VOLUME 10.7 fL (9.0-12.2); MONOCYTES % (AUTO) 8 % (0-12); NEUTROPHILS # (AUTO) 6.6 10^3/uL (1.8-7.8); NEUTROPHILS % (AUTO) 52 % (42-75); PLATELET COUNT 344 10^3/uL (130-400); WHITE BLOOD COUNT 12.7 10^3/uL (4.3-11.0)
[2020-08-26 03:40] LABS: BUN/CREATININE RATIO 6; CALCIUM 7.6 MG/DL (8.5-10.1); CARBON DIOXIDE 24 MMOL/L (21-32); CHLORIDE 107 MMOL/L (98-107); CREATININE SERUM 0.49 MG/DL (0.60-1.30); GFR ESTIMATED > 60; GLUCOSE 175 MG/DL (70-105); MAGNESIUM 1.7 MG/DL (1.6-2.4); PHOSPHORUS 3.6 MG/DL (2.3-4.7); POTASSIUM 3.4 MMOL/L (3.6-5.0); SODIUM 137 MMOL/L (135-145); TRIGLYCERIDES 587 MG/DL (<150)
[2020-08-26 03:54] LABS: ABG BASE EXCESS -2.8 MMOL/L (-2.5-2.5); ABG OXYGEN SATURATION 94 % (94-100); ABG PCO2 35 MMHG (35-45); ABG PO2 70 MMHG (79-93); ABG TCO2 22.3 MMOL/L (21.0-31.0)
[2020-08-26 04:03] LABS: ALLENS TEST YES-POS; PATIENT TEMP 36.8; VENTILATOR YES
[2020-08-26] MEDS: KCL 20 MEQ TAB (K-DUR) PO SCH (05:05)
[2020-08-26] MEDS: MAGNESIUM 1 GM/100 ML IVPB 100 ML IV SCH ×3 (05:05→06:13)
[2020-08-26] MEDS: POTASSIUM CL 10MEQ/50ML IVPB 50 ML IV SCH ×3 (05:05→06:13)
[2020-08-26] MEDS: inSUlin ASPART (NovoLOG) 1 UNIT/0.01 ML (CHARGE PER UNIT) SC SCH ×2 (05:05→11:46)
[2020-08-26] MEDS: MEROPENEM 500 MG/SWFI 10 ML IV PUSH IV SCH ×4 (05:14→11:43)
[2020-08-26] MEDS: fentaNYL INJ 100 MCG/2 ML AMP IVP PRN (05:18)
--- NOTE | 2020-08-26 06:46 | Occ Therapy Progress Note ---
Therapy Progress Note Pt is currently intubated. OT will continue to monitor pt status and initiate treatment when pt is medically stable and able to actively participate with skilled therapy. ALCIRA WELLS Aug 26, 2020 06:46
[2020-08-26 07:10] VITALS: BP 115/76
--- NOTE | 2020-08-26 07:22 | Diagnostic Imaging Report ---
EXAMINATION: Chest 1 view HISTORY: Overdose, ventilated COMPARISON: Chest radiograph 08/25/2020 FINDINGS: Heart size and pulmonary vasculature are normal. The lungs are clear without consolidation, pleural effusion, or pneumothorax. Surgical changes from cervical fusion. Medical support lines and tubes are unchanged. IMPRESSION: 1. No acute radiographic abnormality in the chest. Stable exam. Dictated by: Dictated on workstation # [id number]
--- NOTE | 2020-08-26 08:09 | Physical Therapy Progress Note ---
Therapy Progress Note Patient currently sedated and intubated. May extubate on this date per report. PT will continue to monitor patient status and initiate treatment when patient is medically stable and able to actively participate with skilled therapy. NINA PARRA PT Aug 26, 2020 08:09
[2020-08-26] MEDS: ENOXAPARIN 30 MG/0.3 ML (LOVENOX) SYR SC SCH (08:10)
[2020-08-26] MEDS: FAMOTIDINE 20MG/2ML IV (PEPCID) IVP SCH (08:10)
[2020-08-26 09:32] VITALS: BP 99/68
--- NOTE | 2020-08-26 11:12 | Progress Note ---
Subjective Subjective/Events-last exam Afebrile, no seizure activity or hypothermia last 24 hours. Precedex weaned down some this morning and she is able to open eyes and turn head to me when asked questions. Objective Exam Last Set of Vital Signs Vital Signs Date Time Temp Pulse Resp B/P (MAP) Pulse Ox O2 Delivery O2 Flow Rate FiO2 08/26/20 11:00 35.8 78 26 116/82 (93) 92 Nasal Cannula 3.00 08/26/20 09:32 30 Capillary Refill : Less Than 3 Seconds I&O Intake and Output 08/26/20 00:00 Intake Total 56112 ml Output Total 3250 ml Balance 6780 ml IV Total 95779 ml Other 30 ml Output Urine Total 3250 ml General: Alert, Other (intubated) Lungs: Other (ronchi) Heart: Regular Rate, No Murmurs Abdomen: Normal Bowel Sounds, Soft Results/Procedures Lab Laboratory Tests 08/25/20 11:35: Glucometer 109 08/25/20 15:00: Sodium Level 143, Potassium Level 3.8, Chloride Level 110H, Carbon Dioxide Level 24, Anion Gap 9, Blood Urea Nitrogen 2L, Creatinine 0.49L, Estimat Glomerular Filtration Rate > 60, BUN/Creatinine Ratio 4, Glucose Level 109H, Calcium Level 8.2L 08/25/20 18:42: Glucometer 104 08/25/20 23:11: Glucometer 109 08/26/20 03:00: White Blood Count 12.7H, Red Blood Count 3.82, Hemoglobin 11.8, Hematocrit 34L, Mean Corpuscular Volume 90, Mean Corpuscular Hemoglobin 31, Mean Corpuscular Hemoglobin Concent 35, Red Cell Distribution Width 19.1H, Platelet Count 344, Mean Platelet Volume 10.7, Immature Granulocyte % (Auto) 1, Neutrophils (%) (Auto) 52, Lymphocytes (%) (Auto) 31, Monocytes (%) (Auto) 8, Eosinophils (%) (Auto) 8, Basophils (%) (Auto) 1, Neutrophils # (Auto) 6.6, Lymphocytes # (Auto) 4.0, Monocytes # (Auto) 1.0, Eosinophils # (Auto) 1.0H, Basophils # (Auto) 0.1, Immature Granulocyte # (Auto) 0.1, Sodium Level 137, Potassium Level 3.4L, Chloride Level 107, Carbon Dioxide Level 24, Anion Gap 6, Blood Urea Nitrogen 3L , Creatinine 0.49L, Estimat Glomerular Filtration Rate > 60, BUN/Creatinine Ratio 6, Glucose Level 175H, Calcium Level 7.6L, Phosphorus Level 3.6, Magnesium Level 1.7, Triglycerides Level 587H 08/26/20 03:33: Blood Gas Puncture Site R BRACHIAL, Blood Gas Patient Temperature 36.8, Arterial Blood pH 7.40, Arterial Blood Partial Pressure CO2 35, Arterial Blood Partial Pressure O2 70L, Arterial Blood HCO3 21L, Arterial Blood Total CO2 22.3, Arterial Blood Oxygen Saturation 94, Arterial Blood Base Excess -2.8L, Christian Test YES-POS, Blood Gas Ventilator Setting YES, Blood Gas Inspired Oxygen NA Microbiology 08/23/20 Gram Stain - Final, Complete 08/23/20 Sputum Culture - Final, Complete Streptococcus pneumoniae Usual upper respiratory uog 08/23/20 Blood Culture - Preliminary, Resulted No growth 08/22/20 Urine Culture - Final, Complete Proteus vulgaris Radiology CXR: no acute cardiopulmonary findings Assessment/Plan Assessment/Plan (1) Medication overdose Status: Acute Assessment & Plan: Monitoring and treatment per poison control recommendations. Received magnesium for prolonged QT. Currently still unresponsive, intubated. creative services producer consult when medically stable. 08/24 becoming more alert but without meaningful awareness and very agitated, wean Precedex as able. 08/25 continuing Precdex today per [facility] ICU due to persistent signs of medi cation toxicity (hypothermia) 08/26 weaning and plan for extubation today Qualifiers: Qualified Codes: T50.902A - Poisoning by unspecified drugs, medicaments and biological substances, intentional self-harm, initial encounter (2) UTI (urinary tract infection) Status: Acute Assessment & Plan: Urine culture with proteus, resistant to ceftriaxone, is on meropenem Qualifiers: Qualified Codes: N39.0 - Urinary tract infection, site not specified (3) Polysubstance abuse Status: Chronic (4) Anxiety Status: Chronic (5) Quadriplegia following spinal cord injury Status: Chronic (6) Seizure Status: Acute Assessment & Plan: Keppra started, improved. Likely due to baclofen overdose. Monitor closely. (7) Respiratory failure Status: Acute Assessment & Plan: Secondary to overdose, requiring mechanical ventilation, appreciate Pulm recommendations. 08/26 goal of extubation today Qualifiers: (8) DVT prophylaxis Status: Acute Assessment & Plan: Enoxaparin REKHA BLANTON MD Aug 26, 2020 11:12
== END 2020-08-26 13:17 | disposition left against medical advice (07) | DRG 917 ==
LOC: EDUNIT# 22:30 → ER 22:32 → ICU 23:41
PROVIDERS: ADMIT Internal Medicine; ATTEND Family Medicine
PROC: 5A1945Z Respiratory Ventilation, 24-96 Consecutive Hours (ICD-10-PCS; principal; 2020-08-23)
PROC: 0BH17EZ Insertion of Endotracheal Airway into Trachea, Via Natural or Artificial Opening (ICD-10-PCS; 2020-08-23)
DX: T42.8X2A Poisoning by antiparkinsonism drugs and other central muscle-tone depressants, intentional self-harm, initial encounter (principal); J96.00 Acute respiratory failure, unspecified whether with hypoxia or hypercapnia; G82.54 Quadriplegia, C5-C7 incomplete; N39.0 Urinary tract infection, site not specified; F15.20 Other stimulant dependence, uncomplicated; R40.4 Transient alteration of awareness; Z99.3 Dependence on wheelchair; I95.9 Hypotension, unspecified; R00.1 Bradycardia, unspecified; Z87.820 Personal history of traumatic brain injury; G62.9 Polyneuropathy, unspecified; K21.9 Gastro-esophageal reflux disease without esophagitis; F41.9 Anxiety disorder, unspecified; F17.210 Nicotine dependence, cigarettes, uncomplicated; F12.20 Cannabis dependence, uncomplicated; Z90.81 Acquired absence of spleen; Z88.1 Allergy status to other antibiotic agents; Z88.0 Allergy status to penicillin; Z88.8 Allergy status to other drugs, medicaments and biological substances
CPT/HCPCS: 36415; 36569; 51702; 71045; 76937; 80048; 80053; 80306; 80320; 80329; 81000; 82550; 82805; 82947; 82962; 83605; 83735; 84100; 84478; 84484; 84703; 85007; 85025; 85027; 85652; 86141; 87040; 87070; 87077; 87081; 87088; 87181; 87184; 87186; 87205; 93005; 93041; 93306; 94002; 94003; 94640; 94799; 96365; 96375

== ENCOUNTER 2021-06-12 11:38 | Emergency (ER) | payer MEDICARE, MEDICAID ==
[~2021-06-12] VITALS: Ht 153 cm; Wt 45.3 kg
[~2021-06-12 11:38] MED LIST changes: +CLIN-144 PO; -CLIN300C12 PO; +GABA300C PO; +MEGE40TA5 PO; +RT-ALBUINH INH; -SULF1TAB35 PO; +SULF1TAB38 PO
[2021-06-12] MEDS ORDERED: NS IV 1000 ML 1,000 ML IV SCH (11:45)
[2021-06-12 12:05] LABS: BASOPHILS # (AUTO) 0.1 10^3/uL (0.0-0.1); BASOPHILS % (AUTO) 0 % (0-10); EOSINOPHILS # (AUTO) 0.1 10^3/uL (0.0-0.3); EOSINOPHILS % (AUTO) 1 % (0-10); HEMATOCRIT 39 % (35-52); HEMOGLOBIN 13.8 g/dL (11.5-16.0); LYMPHOCYTES # (AUTO) 5.2 10^3/uL (1.0-4.0); LYMPHOCYTES % (AUTO) 30 % (12-44); MEAN CORPUSCULAR HEMOGLOBIN 31 pg (25-34); MEAN CORPUSCULAR HGB CONC 35 g/dL (32-36); MEAN CORPUSCULAR VOLUME 90 fL (80-99); MEAN PLATELET VOLUME 10.5 fL (9.0-12.2); MONOCYTES # (AUTO) 1.9 10^3/uL (0.0-1.0); MONOCYTES % (AUTO) 11 % (0-12); NEUTROPHILS # (AUTO) 9.9 10^3/uL (1.8-7.8); NEUTROPHILS % (AUTO) 58 % (42-75); PLATELET COUNT 450 10^3/uL (130-400); WHITE BLOOD COUNT 17.2 10^3/uL (4.3-11.0)
[2021-06-12 12:14] LABS: INR 1.1 (0.8-1.4)
[2021-06-12 12:16] LABS: ALBUMIN 4.2 GM/DL (3.2-4.5); POTASSIUM 3.5 MMOL/L (3.6-5.0)
[2021-06-12 12:17] LABS: CALCIUM 9.2 MG/DL (8.5-10.1)
[2021-06-12 12:19] LABS: TOTAL PROTEIN 7.8 GM/DL (6.4-8.2)
[2021-06-12 12:20] LABS: BILIRUBIN,TOTAL 0.8 MG/DL (0.1-1.0)
[2021-06-12 12:22] LABS: CREATININE SERUM 0.55 MG/DL (0.60-1.30)
[2021-06-12 12:39] LABS: LYMPHOCYTES % (MANUAL) 23 %; MONOCYTES % (MANUAL) 5 %; NEUTROPHILS % (MANUAL) 61 %; REACTIVE LYMPHOCYTES 11 %
[2021-06-12 12:40] LABS: STOMATOCYTES SLIGHT; TARGET CELLS MARKED
[2021-06-12] MEDS ORDERED: NS IV 1000 ML 1,000 ML ONE (12:43)
[2021-06-12] MEDS ORDERED: IBUPROFEN 600 MG (MOTRIN) TAB PO STA (13:05)
[2021-06-12] MEDS ORDERED: LORazepam INJ 2 MG/ML (ATIVAN) VIAL IVP STA (13:05)
[2021-06-12] MEDS ORDERED: NS IV ONE (13:30)
[2021-06-12] MEDS ORDERED: NS IV 1000 ML 1,000 ML IV ONE (13:45)
[2021-06-12 14:07] LABS: BILIRUBIN,URINE NEGATIVE (NEGATIVE); CLARITY,URINE CLEAR; COLOR,URINE YELLOW; GLUCOSE, URINE (UA) NEGATIVE (NEGATIVE); KETONES,URINE 3+ (NEGATIVE); LEUKOCYTE ESTERASE ,URINE NEGATIVE (NEGATIVE); NITRITE,URINE POSITIVE (NEGATIVE); PROTEIN,URINE TRACE (NEGATIVE)
[2021-06-12 14:16] LABS: BACTERIA,URINE MODERATE /HPF
[2021-06-12 14:23] LABS: AMPHETAMINE SCREEN, URINE POSITIVE (NEGATIVE); BARBITURATE SCREEN URINE NEGATIVE (NEGATIVE); BENZODIAZEPINES SCREEN URINE POSITIVE (NEGATIVE); CANNABINOID SCREEN, URINE POSITIVE (NEGATIVE); COCAINE SCREEN URINE NEGATIVE (NEGATIVE); METHADONE STAT NEGATIVE (NEGATIVE); METHAMPHETAMINE SCREEN URINE S POSITIVE (NEGATIVE); OPIATE SCREEN URINE NEGATIVE (NEGATIVE); OXYCODONE STAT NEGATIVE (NEGATIVE); PROPOXYPHENE STAT NEGATIVE (NEGATIVE); TRICYCLIC ANTIDEPRESSANTS SCRE NEGATIVE (NEGATIVE)
[2021-06-12] MEDS ORDERED: cefTRIAXone 2,000 MG in NS (IVPB) 50 ML IV ONE (14:30)
[2021-06-12] MEDS ORDERED: BACLOFEN 10 MG (LIORESAL) TAB PO STA (14:34)
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
[2021-06-12] MEDS ORDERED: TRM50T PO (14:44)
[2021-06-12] MEDS ORDERED: SULF1TAB38 PO (14:44)
[2021-06-12] MEDS ORDERED: MUPI22OI2 TP (14:46)
[2021-06-12 17:09] VITALS: BP 94/62
== END 2021-06-12 17:09 | disposition home or self-care (01) ==
LOC: EDUNIT# 11:38 → ER 11:39
DX: N39.0 Urinary tract infection, site not specified (principal); M62.3 Immobility syndrome (paraplegic); K60.2 Anal fissure, unspecified; N81.0 Urethrocele; N36.2 Urethral caruncle; J44.9 Chronic obstructive pulmonary disease, unspecified; F17.210 Nicotine dependence, cigarettes, uncomplicated; Z87.820 Personal history of traumatic brain injury
CPT/HCPCS: 36415; 51701; 80053; 80306; 81000; 83605; 84703; 85007; 85027; 85610; 85730; 87040; 87077; 87088; 87186

== ENCOUNTER 2022-02-17 12:21 | Emergency (ER) | payer MEDICARE, MEDICAID ==
[~2022-02-17] VITALS: Ht 152.4 cm; Wt 49.9 kg
[~2022-02-17 12:21] MED LIST changes: +MUPI22OI2 TP; +TRM50T PO
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
[2022-02-17 14:45] VITALS: BP 93/59
--- NOTE | 2022-02-17 16:15 | Diagnostic Imaging Report ---
INDICATION: Pain and swelling. FINDINGS: Right upper extremity deep and superficial venous systems are widely patent. No thrombus identified. No fluid collection. There is some subcutaneous edema, but no formed fluid collection. Some regional reactive lymph nodes are noted in the axilla. IMPRESSION: No fluid collection. Subcutaneous edema noted. Negative for venous thrombus. Dictated by: Dictated on workstation # [id number]
== END 2022-02-17 14:47 | disposition left against medical advice (07) ==
LOC: EDUNIT# 12:21 → ER 12:22
DX: L03.113 Cellulitis of right upper limb (principal); F17.210 Nicotine dependence, cigarettes, uncomplicated

== ENCOUNTER 2022-07-22 13:37 | Emergency (ER) | payer MEDICARE, MEDICAID ==
[~2022-07-22 13:37] MED LIST changes: +ALBU8.5H6 IH; +ALBU8.5H6 INH; -RT-ALBUINH IH; -RT-ALBUINH INH
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
[2022-07-22 14:57] LABS: POTASSIUM 4.1 MMOL/L (3.6-5.0)
[2022-07-22 14:58] LABS: CALCIUM 8.8 MG/DL (8.5-10.1)
[2022-07-22 15:02] LABS: CREATININE SERUM 0.48 MG/DL (0.60-1.30)
[2022-07-22 15:47] LABS: BILIRUBIN,URINE NEGATIVE (NEGATIVE); CLARITY,URINE CLOUDY; COLOR,URINE YELLOW; GLUCOSE, URINE (UA) NEGATIVE (NEGATIVE); KETONES,URINE NEGATIVE (NEGATIVE); LEUKOCYTE ESTERASE ,URINE 1+ (NEGATIVE); NITRITE,URINE POSITIVE (NEGATIVE); PH,URINE 7.5 (5-9); PROTEIN,URINE 3+ (NEGATIVE)
[2022-07-22 15:56] LABS: BACTERIA,URINE LARGE /HPF; RBC,URINE 50-100 /HPF; WBC,URINE >100 /HPF
[2022-07-22] MEDS ORDERED: TRIM/SULFAMETH 160/800 (SEPTRA DS) TAB PO ONE (16:30)
[2022-07-22] MEDS ORDERED: SULF1TAB38 PO (16:30)
[2022-07-22 16:39] VITALS: BP 93/74
== END 2022-07-22 16:39 | disposition home or self-care (01) ==
LOC: EDUNIT# 13:37 → ER 13:40
DX: N39.0 Urinary tract infection, site not specified (principal); F17.290 Nicotine dependence, other tobacco product, uncomplicated; Z93.52 Appendico-vesicostomy status; Z88.1 Allergy status to other antibiotic agents
CPT/HCPCS: 36415; 51701; 80048; 81000; 84703; 87077; 87088; 87186